=== PATIENT | male | born 1950 | race Caucasian/White ===

== ENCOUNTER 2023-12-28 09:49 | Outpatient (RCR) | payer MEDICARE, OTHER, SELFPAY ==
[2023-12-28 10:11] VITALS: BP 131/63; PULSE 49; RESP 16; TEMP 36.1; BMI 30.2
--- NOTE | 2023-12-28 10:15 | HP.PCM_ITS ---
History of Present Illness Date of Service: 12/28/23 Chief Complaint: Nonhealing ulceration plantar left foot secondary to Charcot arthropathy History of Wound: Patient is a 73-year-old male who first presented to office in January 2023 with complaint of deformity of the left foot. States in February 2022 that he was out playing golf and exited the golf cart feeling a pop in the left foot. He did remove shoe to examine however did not see any visible deformity and the site was not painful and thus he continued to play through the injury. 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 Reports deformity slowly progressed over next year. Upon radiographic imaging it was determined that he had Lisfranc injury which did result in continued deformity of the foot leading to Charcot joint arthropathy. 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. During the off season he does go to [facility], 45 minutes north of [place]. He does also follow with a bender machine operator to in [place] during this time. While in [place] he was fitted with a [place] walker and states that he does not wear this however has developed an ulceration to the plantar aspect of the left foot which he states first appeared in end of October 2023 as he returned to [place]. He did follow with me in office in November and underwent 5 weeks of local wound care treatment with applications of Nadira and continued offloading in [facility] however ulceration did not change in size and thus discussed referral to the wound care center for applications of advanced wound care product and applications of TCC. Patient denies nausea, vomiting, fever, chills. Patient denies pain secondary to peripheral polyneuro leanna. No further complaints. [facility] Home Medications ?Medication ?Instructions ?Recorded ?Last Taken ?Type aspirin 81 mg tablet,delayed 81 mg PO DAILY 12/28/23 Unknown History release (Adult Aspirin Regimen) atenolol 25 mg tablet 25 mg PO DAILY 12/28/23 Unknown History atorvastatin 40 mg tablet 40 mg PO DAILY 12/28/23 Unknown History cholecalciferol (vitamin D3) 50 10,000 unit PO DAILY 12/28/23 Unknown History mcg (2,000 unit) capsule (Vitamin D3) fexofenadine 180 mg tablet 180 mg PO DAILY 12/28/23 Unknown History (Shannon Allergy) gabapentin 300 mg capsule 300 mg PO BID 12/28/23 Unknown History insulin aspart U-100 100 unit/mL 150 unit subcut DAILY 12/28/23 Unknown History subcutaneous solution (Novolog U-100 Insulin aspart) meloxicam 15 mg tablet 15 mg PO DAILY 12/28/23 Unknown History omega-3 fatty acids 2,000 mg PO TID 12/28/23 Unknown History saw palmetto 450 mg capsule 450 mg PO BID 12/28/23 Unknown History telmisartan 80 1 tab PO DAILY 12/28/23 Unknown History mg-hydrochlorothiazide 25 mg tablet Allergy/AdvReac Type Severity Reaction Status Date / Time Penicillins (PCN) Allergy Intermediate Rash Verified 12/28/23 10:35 ROS Constitutional Constitutional: Denies anorexia, change in weight, chills, fatigue or fever(s) Eyes Eyes: Denies blurry vision, change in vision or double vision ENT HEENT: Denies dysphagia, nasal congestion, nasal discharge or sore throat Cardiovascular Cardiovascular: Denies chest pain, claudication or palpitations Respiratory/Chest Respiratory/Chest: Denies cough or shortness of breath at rest Gastrointestinal Gastrointestinal: Denies abdominal pain, constipation, diarrhea, nausea or vomiting Genitourinary Genitourinary: Denies dysuria, hematuria or urinary urgency Musculoskeletal Musculoskeletal: Denies joint pain, joint stiffness or joint swelling Integumentary Integumentary: Denies jaundice, lesions, pruritus or rash Neurologic Neurologic: Denies dizziness, numbness or seizures Psychiatric Psychiatric: Denies anxiety or depression Endocrine Endocrinology: Denies cold intolerance or heat intolerance Hematologic/Lymphatic Hematologic/Lymphatic: Denies easy bleeding or easy bruising Physical Exam Const alert, oriented x3 and no apparent distress General Appearance: cooperative and comfortable HEENT normocephalic Eyes General Eye: normal appearance of both eyes Neck General: normal visual inspection Lymph Lymphatic: no lymphadenopathy noted and no lymphedema noted Resp normal respiratory effort Cardio regular rate and regular rhythm Extremity normal capillary refill, no calf tenderness and no pedal edema Extremity Narrative: Vascular: DP and PT pulses palpable to the left lower extremity. CFT is less than 4 seconds to the digits. Hair growth is diminished to the digits of the foot. Normal temperature gradient. Neurologic: Absent protective sensation secondary to diabetic peripheral polyneuropathy. Gross sensation is intact. Musculoskeletal: Charcot foot arthropathy with apex of deformity of the Lisfranc joint with corresponding rocker-bottom foot deformity of the left foot. Derm: Rocker-bottom foot deformity noted with plantar ulceration at the central midfoot/cuboid region. Ulceration demonstrates healthy granular base with macerated tissue periwound with serosanguineous drainage. No palpable fluctuance/bogginess noted. No visible abscess formation. No erythema noted. No purulent drainage. No malodor noted. Skin no rashes or lesions noted, skin turgor normal and no jaundice Neuro moves all extremities Debridement Note Debridement Note Wound debrided: Left plantar foot Laterality: Left Wound Grade/Stage: Bass stage I Type of Debridement: Excisional debridement Anesthesia Used: 5% Lidocaine Gel Depth: Down to and including healthy tissue and in the subcutaneous layer Percentage of wound debrided: 100 Instrument Used: - (313 blade) Tissue Removed: Fibrous, devitalized subcutaneous, biofilm, slough Severity: Fat Layer Exposed Amount of bleeding with debridement: Mild Bleeding Controlled with: Compression and gauze Patient tolerated procedure: Patient tolerated procedure well Assessment/Plan Assessment/Plan (1) Neuropathic ulcer of left foot with fat layer exposed: CODE(S): L97.522 - Non-pressure chronic ulcer of other part of left foot with fat layer exposed (2) Charcot joint of left foot: CODE(S): M14.672 - Charcot's joint, left ankle and foot (3) Diabetes mellitus with diabetic polyneuropathy: CODE(S): E11.42 - Type 2 diabetes mellitus with diabetic polyneuropathy (4) Type 2 diabetes mellitus with foot ulcer: CODE(S): E11.621 - Type 2 diabetes mellitus with foot ulcer; L97.509 - Non-pressure chronic ulcer of other part of unspecified foot with unspecified severity PLAN: Plan Patient seen and evaluated Radiographs obtained in office 11/13/2023 demonstrates progression of deformity with rocker-bottom foot deformity. 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 While in office patient did complete 5 weeks of local wound care with applications of Nadira and continued offloading in his [place] boot, however ulceration failed to demonstrate progression and thus was referred to wound care center for continued care. Patient is understanding of his Charcot arthropathy deformity and that there is no cure. He is understanding that continued offloading is needed for lifelong progressive deformity. He is understanding of the risks of ulceration, infection, and possible amputation of the lower extremity. He has also completed oral course of doxycycline 100 mg twice daily (stop date 12/28/2023). Predebridement: 0.9 cm x 1.4 cm x 0.1 cm Ulceration to the plantar aspect of the left midfoot secondary to Charcot joint arthropathy with rocker-bottom foot deformity was debrided as noted in the clinical panel above. Postdebridement ulceration measures 1.0 cm x 1.5 cm x 0.1 cm. Collagen powder and PHMB applied to wound base. Site was dressed well and padded with dry sterile dressing. TCC (71911) was applied to the left lower extremity. I recommend total contact cast application to the left lower extremity. The is amendable to have a left lower extremity total contact cast applied and verbal consent was obtained. This was applied according to standard protocol in a rectus position that was also well padded according to standard protocol. He tolerated this well. He was advised to keep this clean, dry, and intact until follow-up next week. Discussed only ambulating in the improved offloading boot and not in the cast alone. He is understanding of this. Discussed applying for advanced wound care product, EpiFix. Pending approval will apply at next visit. Discussed continue proper diabetic diet for tight glycemic control to aid in wound healing. Patient does report his blood sugars tend to run around 160mg/dL and his previous A1c was 8.3% in January 2023, states most recent A1c is now under 8% but does not know number. We have discussed striving to lower A1c to 6.5%. Recommend updating A1c. Discussed protein intake to aid in wound healing. Umberto supplementation was also recommended. The following work up and care recommendations were made: Dressing: Collagen powder and PHMB dressing to ulcerative base. Total contact cast application to the left lower extremity for continued offloading. Wash: Do not get wet. Apply cast bag when showering to keep total contact cast clean and dry. Tissue growth optimization: Collagen powder PHMB dressing Offload: Total contact cast left lower extremity Vascular: DP and PT pulses palpable Edema: Mild pedal edema secondary to Charcot arthropathy Infection: No signs of infection Pain: No pain secondary to DM type II with peripheral polyneuropathy Host factors: Charcot arthropathy with rocker-bottom foot deformity left lower extremity: DM type II with peripheral polyneuropathy I answered all the patient's questions. To return to the wound healing center in 1 week or call sooner if the patient has any questions or concerns.
--- NOTE | 2024-01-03 11:02 | WC ---
PHOTO LEFT PLANTAR(I) 12/26/23
== END 2024-01-03 23:59 | disposition home or self-care (01) ==
LOC: WC 09:49
PROVIDERS: Referring Provider Student in an Organized Health Care Education/Training Program; Visit Provider Student in an Organized Health Care Education/Training Program
DX: E11.621 Type 2 diabetes mellitus with foot ulcer (principal); L97.522 Non-pressure chronic ulcer of other part of left foot with fat layer exposed; Z79.4 Long term (current) use of insulin; E11.610 Type 2 diabetes mellitus with diabetic neuropathic arthropathy; E11.42 Type 2 diabetes mellitus with diabetic polyneuropathy; Z79.82 Long term (current) use of aspirin; Z79.1 Long term (current) use of non-steroidal anti-inflammatories (NSAID)
CPT/HCPCS: 11042; 29445; 99204; G0463

== ENCOUNTER 2024-02-01 09:30 | Outpatient (RCR) | payer MEDICARE, OTHER, SELFPAY ==
[2024-01-04 00:52] VITALS: BP 131/63; PULSE 49; RESP 16; TEMP 36.1; BMI 30.2
[2024-01-04 10:39] VITALS: BP 137/66; PULSE 59; RESP 18; TEMP 35.8; BMI 30.2
--- NOTE | 2024-01-04 14:01 | PN.PCM_ITS ---
History of Present Illness Date of Service: 01/04/24 Chief Complaint: Nonhealing ulceration plantar left foot secondary to Charcot arthropathy History of Wound: Patient is a 73-year-old male who first presented to office in January 2023 with complaint of deformity of the left foot. States in February 2022 that he was exited the golf cart feeling a pop in the left foot. He did remove shoe to examine however did not see any visible deformity and the site was not painful and thus he continued to play through the injury. 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 Reports deformity slowly progressed over next year. Upon radiographic imaging it was determined that he had Lisfranc injury which did result in continued deformity of the foot leading to Charcot joint arthropathy. 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 During the off season he does go to [facility], 45 minutes north of [place]. He does also follow with a learning support specialist to in [place] during this time. While in [place] he was fitted with a Tribe walker and states that he does not wear this however has developed an ulceration to the plantar aspect of the left foot which he states first appeared in end of October 2023 as he returned to [place]. He did follow with me in office in November and underwent 5 weeks of local wound care treatment with applications of Nadira and continued offloading in [facility] however ulceration did not change in size and thus discussed referral to the wound care center for applications of advanced wound care product and applications of TCC. Patient denies nausea, vomiting, fever, chills. Patient denies pain secondary to peripheral polyneuropathy. No further complaints. Objective Data Objective Data Vital Signs: Vital Signs Temp Pulse Resp BP 96.5 F L 59 L 18 137/66 H 01/04/24 10:39 01/04/24 10:39 01/04/24 10:39 01/04/24 10:39 Weight: 106.594 kg Body Mass Index (BMI) 30.2 Physical Exam Const alert, oriented x3 and no apparent distress General Appearance: cooperative HEENT normocephalic Eyes General Eye: normal appearance of both eyes Neck General: normal visual inspection Lymph Lymphatic: no lymphadenopathy noted and no lymphedema noted Resp normal respiratory effort Cardio regular rate and regular rhythm Extremity normal capillary refill, no joint enlargement, no calf tenderness and no pedal edema Extremity Narrative: Vascular: DP and PT pulses palpable to the left lower extremity. CFT is less than 4 seconds to the digits. Hair growth is diminished to the digits of the foot. Normal temperature gradient. Neurologic: Absent protective sensation secondary to diabetic peripheral polyneuropathy. Gross sensation is intact. Musculoskeletal: Charcot foot arthropathy with apex of deformity of the Lisfranc joint with corresponding rocker-bottom foot deformity of the left foot. Derm: Rocker-bottom foot deformity noted with plantar ulceration at the central midfoot/cuboid region. Ulceration demonstrates healthy granular base with some macerated tissue periwound with serosanguineous drainage. No palpable fluctuance/bogginess noted. No visible abscess formation. No erythema noted. No purulent drainage. No malodor noted. Debridement Note Debridement Note Wound debrided: Left plantar foot Laterality: Left Wound Grade/Stage: Bass stage I Type of Debridement: Excisional debridement Anesthesia Used: 5% Lidocaine Gel Depth: Down to and including healthy tissue and in the subcutaneous layer Percentage of wound debrided: 100 Instrument Used: 5mm curette and #15 blade Tissue Removed: Fibrous, devitalized subcutaneous, biofilm, slough Severity: Fat Layer Exposed Amount of bleeding with debridement: Mild Bleeding Controlled with: Compression and gauze Patient tolerated procedure: Patient tolerated procedure well Post-Debridement Measurements and Additional Note: Post-Debridement Measurements/Treatment - Nurse 1 - General Ulcer Assessment Start: 01/04/24 10:39 Freq: Status: Active Protocol: .LOWEXT Activity Type Activity Date Activity User E-sign Co-sign Detail Recorded Client Recorded Date Recorded By Document 01/04/24 10:39 RB wound 01/04/24 10:41 RB 01/04/24 10:39 - Today's Visit Information Type of service Follow-up Visit (Physician/ZONE SUPER[employer]OR [employer] ) Arrival Mode Ambulatory Transfer Assistance None Patient Identification Verified (Name & Yes ) Patient Requires Transmission-Based No Precautions Height and Weight Body Mass Index (BMI) 30.2 BMI Classification Obese Vital Signs Temperature (97.8 F-99.1 F) 96.5 F L Temperature Source Temporal Pulse Rate (60-100) 59 L Pulse Location Monitor Respiratory Rate (12-18) 18 Respiratory rate source Observation Blood Pressure (90/60-120/80) 137/66 H Blood Pressure Mean (mm Hg) 89 Source Monitor Position Semi-Fowlers Blood Pressure Location Left Arm History Since Last Visit- (Skip if this is Patient's initial visit) Have you changed medications since your No last visit? Any new allergies or adverse reactions No Had a fall/change in ADL's that may No increase risk of falls Signs or symptoms of abuse and/or No neglect since last visit Have you been in the hospital since your No last visit? Has dressing in place as prescribed Yes Has compression in place as prescribed No Has offloadiing in place as prescribed Yes Experienced any changes in pain level or No management Pain Scale: 0-10 Numeric Is Patient Pain Free? Yes - Nurse 1 - General Ulcer Measurement Start: 01/04/24 10:39 Freq: Status: Active Protocol: Activity Type Activity Date Activity User E-sign Co-sign Detail Recorded Client Recorded Date Recorded By Document 01/04/24 10:39 RB wound 01/04/24 10:41 RB 01/04/24 10:39 Wound Center Nurse 1 1. left plantar foot -Combined with other wound No -Current Size (cm) - Length 0.7 -Current Size (cm) - Width 0.7 -Current Size (cm) - Depth 0.1 -Total Square Cm 0.49 -Tunneling No -Undermining/Tunneling No -Circular Undermining No -Exudate Amt Medium -Exudate Type Serosanguineous -Wound Margin Distinct, Outline Attached -Granulation Amt Medium (34-66%) -Granulation Quality [place] -Slough/Fibrin Yes -Necrosis Amt Medium (34-66%) -Necrotic Tissue Type Adherent Slough -Structure Exposed N/A -Texture (Tere-wound Skin Appearance) Assessed,Callus -Moisture (Tere-wound Skin Appearance) Assessed -Color (Tere-wound Skin Appearance) Assessed -Temperature (Tere-wound Skin No Abnormality Appearance) (Pt Warm) -Tenderness on Palpation (Tere-wound No Skin Appearance) -Ulcer Cleansing Wound Cleanser -Foul Odor after Cleansing No -Anesthetic Used 5% Lidocaine Gel LUIZA - Nurse 2 - General Ulcer CM Notes Start: 01/04/24 10:39 Freq: Status: Active Protocol: Activity Type Activity Date Activity User E-sign Co-sign Detail Recorded Client Recorded Date Recorded By Document 01/04/24 10:48 BMF [id number] 01/04/24 10:57 BMF 01/04/24 10:48 Wound Center Nurse 2 -Time 10:48 -Correct Patient Yes -Correct Side, Site, Position Yes -Correct Procedure Yes -Procedure Performed Yes -Type of Procedure Debridement -Clinical Debridement Subcutaneous -Tissue Removed Subcutaneous -Post Debridement (cm) - Length 1 -Post Debridement (cm) - Width 0.8 -Post Debridement (cm) - Depth 0.1 -Total Square (Post) (cm) 0.8 -Area of Debridement (cm) - Length 1 -Area of Debridement (cm) - Width 0.8 -Total Square (Area) (cm) 0.8 -Tunneling No -Undermining/Tunneling No -Circular Undermining No -Wound/Ulcer Outcome Not Healed -Ulcer Cleansing Rinsed/ Irrigated with Saline -Foul Odor after Cleansing No -Bioengineered Tissue Yes -Type of Bioengineered Tissue Epifix 18mm Disc -Expiration Date 07/06/28 -Product Lot Number [id number] -Percent Used 100 -Lot number of Saline Used [id number] -Bleeding Controlled with Pressure -Treatment Response Procedure Tolerated Well -Offloading Yes -Type of Offloading Total Contact Cast (TCC) - Left ($) -Debridement - Subq, 1st 20sq cm No -Apply Skin Sub - 1st 25 sq cm - Feet 1 -Epifix 18mm Disc 3 Pain Scale: 0-10 Numeric Is Patient Pain Free? Yes - Nurse 3 - General Ulcer D/C NN Start: 01/04/24 10:39 Freq: Status: Active Protocol: Activity Type Activity Date Activity User E-sign Co-sign Detail Recorded Client Recorded Date Recorded By Document 01/04/24 11:44 KW [facility] 01/04/24 11:44 01/04/24 11:44 Wound Care Center Nurse 3 1. left plantar foot -Primary Dressing Applied AMD Dressing 4x4 -AMD Dressing 4x4 1 Pain Scale: 0-10 Numeric Is Patient Pain Free? Yes - Visit Discharge Discharge Condition Stable Ambulatory Status Ambulatory Transportation Private Auto Medication Reconcilliation completed & No provided to patient/care provider Clinical Summary of Care Provided Yes Notes: TCC CAST APPLIED Assessment/Plan Assessment/Plan (1) Neuropathic ulcer of left foot with fat layer exposed: CODE(S): L97.522 - Non-pressure chronic ulcer of other part of left foot with fat layer exposed (2) Charcot joint of left foot: CODE(S): M14.672 - Charcot's joint, left ankle and foot (3) Type I diabetes mellitus with polyneuropathy: CODE(S): E10.42 - Type 1 diabetes mellitus with diabetic polyneuropathy (4) Diabetes mellitus with foot ulcer: CODE(S): E11.621 - Type 2 diabetes mellitus with foot ulcer; L97.509 - Non-pressure chronic ulcer of other part of unspecified foot with unspecified severity PLAN: Plan Patient seen and evaluated Radiographs obtained in office 11/13/2023 demonstrates progression of deformity with rocker-bottom foot deformity. 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 While in office patient did complete 5 weeks of local wound care with applications of Nadira and continued offloading in his Tribe boot, however ulceration failed to demonstrate progression and thus was referred to wound care center for continued care. Patient is understanding of his Charcot arthropathy deformity and that there is no cure. He is understanding that continued offloading is needed for lifelong progressive deformity. He is understanding of the risks of ulceration, infection, and possible amputation of the lower extremity. He has also completed oral course of doxycycline 100 mg twice daily (stop date 12/28/2023). Predebridement: 0.9 cm x 0.7 cm x 0.1 cm Ulceration to the plantar aspect of the left midfoot secondary to Charcot joint arthropathy with rocker-bottom foot deformity was debrided as noted in the clinical panel above. Postdebridement ulceration measures 1.0 cm x 0.8 cm x 0.1 cm. EpiFix graft #1 applied to ulcerative bed and dressed with Adaptic touch and anchored with Steri-Strips. Site was dressed well and padded with dry sterile dressing. TCC (35060) was applied to the left lower extremity. Ulceration demonstrates reduction in size versus previous visit and overall improvement with application of the total contact cast. Will continue applications. I recommend total contact cast application to the left lower extremity 01/04/24. The is amendable to have a left lower extremity total contact cast applied and verbal consent was obtained. This was applied according to standard protocol in a rectus position that was also well padded according to standard protocol. He tolerated this well. He was advised to keep this clean, dry, and intact until follow-up next week. Discussed only ambulating in the improved offloading boot and not in the cast alone. He is understanding of this. He has been approved for advanced wound care product, EpiFix. Will continue applying Discussed continue proper diabetic diet for tight glycemic control to aid in wound healing. Patient does report his blood sugars tend to run around 160mg/dL and his previous A1c was 8.3% in January 2023, states most recent A1c is now under 8% but does not know number. We have discussed striving to lower A1c to 6.5%. Recommend updating A1c. Discussed protein intake to aid in wound healing. Umberto supplementation was also recommended. The following work up and care recommendations were made: Dressing: EpiFix, Adaptic touch, Steri-Strips, dry sterile dressing. Total cont act cast application to the left lower extremity for continued offloading. Wash: Do not get wet. Apply cast bag when showering to keep total contact cast clean and dry. Tissue growth optimization: EpiFix Offload: Total contact cast left lower extremity Vascular: DP and PT pulses palpable Edema: Mild pedal edema secondary to Charcot arthropathy Infection: No signs of infection Pain: No pain secondary to DM type II with peripheral polyneuropathy Host factors: Charcot arthropathy with rocker-bottom foot deformity left lower extremity: DM type II with peripheral polyneuropathy I answered all the patient's questions. To return to the wound healing center in 1 week or call sooner if the patient has any questions or concerns.
[2024-01-11 09:31] VITALS: BP 114/59; PULSE 53; RESP 16; TEMP 35.5; BMI 30.2
--- NOTE | 2024-01-11 13:34 | PCM.WC.PN ---
History of Present Illness Date of Service: 01/11/24 Chief Complaint: Nonhealing ulceration plantar left foot secondary to Charcot arthropathy History of Wound: Patient is a 73-year-old male who first presented to office in January 2023 with complaint of deformity of the left foot. States in February 2022 that he was exited the golf cart feeling a pop in the left foot. He did remove shoe to examine however did not see any visible deformity and the site was not painful and thus he continued to play through the injury. 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 Reports deformity slowly progressed over next year. Upon radiographic imaging it was determined that he had Lisfranc injury which did result in continued deformity of the foot leading to Charcot joint arthropathy. 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 During the off season he does go to [facility], 45 minutes north of [place]. He does also follow with a media senior recruiter to in [place] during this time. While in [place] he was fitted with a [employer] walker and states that he does not wear this however has developed an ulceration to the plantar aspect of the left foot which he states first appeared in end of October 2023 as he returned to [place]. He did follow with me in office in November and underwent 5 weeks of local wound care treatment with applications of Nadira and continued offloading in [facility] however ulceration did not change in size and thus discussed referral to the wound care center for applications of advanced wound care product and applications of TCC. Patient denies nausea, vomiting, fever, chills. Patient denies pain secondary to peripheral polyneuropathy. No further complaints. Subjective Subjective 73-year-old male continues follow-up to the wound care center for left foot plantar ulceration secondary to Charcot foot deformity. Continues to ambulate in total contact cast and does well with this. Denies constitutional symptoms today. Denies further complaints today. Objective Data Objective Data Vital Signs: Vital Signs Temp Pulse Resp BP 96 F L 53 L 16 114/59 L 01/11/24 09:31 01/11/24 09:31 01/11/24 09:31 01/11/24 09:31 Weight: 106.594 kg Body Mass Index (BMI) 30.2 Physical Exam Const alert, oriented x3 and no apparent distress General Appearance: cooperative HEENT normocephalic Eyes General Eye: normal appearance of both eyes Neck General: normal visual inspection Lymph Lymphatic: no lymphadenopathy noted and no lymphedema noted Resp normal respiratory effort Cardio regular rate and regular rhythm Extremity normal capillary refill, no joint enlargement, no calf tenderness and no pedal edema Extremity Narrative: Vascular: DP and PT pulses palpable to the left lower extremity. CFT is less than 4 seconds to the digits. Hair growth is diminished to the digits of the foot. Normal temperature gradient. Neurologic: Absent protective sensation secondary to diabetic peripheral polyneuropathy. Gross sensation is intact. Musculoskeletal: Charcot foot arthropathy with apex of deformity of the Lisfranc joint with corresponding rocker-bottom foot deformity of the left foot. Derm: Rocker-bottom foot deformity noted with plantar ulceration at the central midfoot/cuboid region. Ulceration demonstrates healthy granular base with some macerated tissue periwound with serosanguineous drainage. No palpable fluctuance/bogginess noted. No visible abscess formation. No erythema noted. No purulent drainage. No malodor noted. Debridement Note Debridement Note Wound debrided: Left plantar midfoot Laterality: Left Wound Grade/Stage: Bass stage I Type of Debridement: Excisional debridement Anesthesia Used: 5% Lidocaine Gel Depth: Down to and including healthy tissue and in the subcutaneous layer Percentage of wound debrided: 100 Instrument Used: - (313 blade) Tissue Removed: Fibrous, devitalized subcutaneous, biofilm, slough Severity: Fat Layer Exposed Amount of bleeding with debridement: Mild Bleeding Controlled with: Compression and gauze Patient tolerated procedure: Patient tolerated procedure well Post-Debridement Measurements and Additional Note: Post-Debridement Measurements/Treatment - Nurse 1 - General Ulcer Assessment Start: 01/04/24 10:39 Freq: Status: Active Protocol: LAURA Activity Type Activity Date Activity User E-sign Co-sign Detail Recorded Client Recorded Date Recorded By Document 01/04/24 10:39 RB wound 01/04/24 10:41 RB Document 01/11/24 09:31 DL [email or web address] 01/11/24 09:41 DL 01/04/24 01/11/24 10:39 09:31 - Today's Visit Information Type of service Follow-up Visit Follow-up Visit (Physician/COMMERCIAL ATTACHE (Physician/COMMERCIAL ATTACHE ) ) Arrival Mode Ambulatory Ambulatory Transfer Assistance None None Patient Identification Verified (Name & Yes Yes ) Patient Requires Transmission-Based No No Precautions Height and Weight Body Mass Index (BMI) 30.2 30.2 BMI Classification Obese Obese Vital Signs Temperature (97.8 F-99.1 F) 96.5 F L 96 F L Temperature Source Temporal Temporal Pulse Rate (60-100) 59 L 53 L Pulse Location Monitor Monitor Respiratory Rate (12-18) 18 16 Respiratory rate source Observation Observation Blood Pressure (90/60-120/80) 137/66 H 114/59 L Blood Pressure Mean (mm Hg) 89 77 Source Monitor Monitor Position Semi-Fowlers Blood Pressure Location Left Arm History Since Last Visit- (Skip if this is Patient's initial visit) Have you changed medications since your No No last visit? Any new allergies or adverse reactions No No Had a fall/change in ADL's that may No No increase risk of falls Signs or symptoms of abuse and/or No No neglect since last visit Have you been in the hospital since your No No last visit? Has dressing in place as prescribed Yes Yes Has compression in place as prescribed No N/A Has offloadiing in place as prescribed Yes Yes Experienced any changes in pain level or No No management Left Footwear Total Contact Cast Pain Scale: 0-10 Numeric Is Patient Pain Free? Yes Yes WC - Nurse 1 - General Ulcer Measurement Start: 01/04/24 10:39 Freq: Status: Active Protocol: Activity Type Activity Date Activity User E-sign Co-sign Detail Recorded Client Recorded Date Recorded By Document 01/04/24 10:39 RB wound 01/04/24 10:41 RB Document 01/11/24 09:31 DL [email or web address] 01/11/24 09:41 DL 01/04/24 01/11/24 10:39 09:31 Wound Center Nurse 1 1. left plantar foot -Combined with other wound No -Current Size (cm) - Length 0.7 0.1 -Current Size (cm) - Width 0.7 0.1 -Current Size (cm) - Depth 0.1 0.1 -Total Square Cm 0.49 0.01 -Photo Taken Yes -Tunneling No -Undermining/Tunneling No -Circular Undermining No -Exudate Amt Medium Small -Exudate Type Serosanguineous Serosanguineous -Wound Margin Distinct, Distinct, Outline Outline Attached Attached -Granulation Amt Medium (34-66%) Large (67-100%) -Granulation Quality [place] -Slough/Fibrin Yes -Necrosis Amt Medium (34-66%) Small (1-33%) -Necrotic Tissue Type Adherent Slough Adherent Slough -Structure Exposed N/A N/A -Texture (Tere-wound Skin Appearance) Assessed,Callus Scarring -Moisture (Tere-wound Skin Appearance) Assessed No Abnormality -Color (Tere-wound Skin Appearance) Assessed No Abnormality -Temperature (Tere-wound Skin No Abnormality No Abnormality Appearance) (Pt Warm) (Pt Warm) -Tenderness on Palpation (Tere-wound No Skin Appearance) -Ulcer Cleansing Wound Cleanser Soap and Water -Foul Odor after Cleansing No No -Anesthetic Used 5% Lidocaine 5% Lidocaine Gel Gel WC - Nurse 2 - General Ulcer CM Notes Start: 01/04/24 10:39 Freq: Status: Active Protocol: Activity Type Activity Date Activity User E-sign Co-sign Detail Recorded Client Recorded Date Recorded By Document 01/04/24 10:48 [facility] [email or web address] 01/04/24 10:57 [facility] Document 01/11/24 10:10 JF 000 01/11/24 10:13 JF 01/04/24 01/11/24 10:48 10:10 Wound Center Nurse 2 1. left plantar foot -Time 10:48 10:10 -Correct Patient Yes Yes -Correct Side, Site, Position Yes Yes -Correct Procedure Yes Yes -Procedure Performed Yes Yes -Type of Procedure Debridement Debridement -Clinical Debridement Subcutaneous Subcutaneous -Tissue Removed Subcutaneous Subcutaneous -Post Debridement (cm) - Length 1 0.8 -Post Debridement (cm) - Width 0.8 0.6 -Post Debridement (cm) - Depth 0.1 0.1 -Total Square (Post) (cm) 0.8 0.48 -Area of Debridement (cm) - Length 1 0.8 -Area of Debridement (cm) - Width 0.8 0.6 -Total Square (Area) (cm) 0.8 0.48 -Tunneling No No -Undermining/Tunneling No No -Circular Undermining No No -Wound/Ulcer Outcome Not Healed Not Healed -Ulcer Cleansing Rinsed/ Rinsed/ Irrigated with Irrigated with Saline Saline -Foul Odor after Cleansing No No -Bioengineered Tissue Yes Yes -Type of Bioengineered Tissue Epifix 18mm Epifix 18mm Disc Disc -Expiration Date 07/06/28 07/06/28 -Product Lot Number [id number] -Percent Used 100 100 -Lot number of Saline Used [id number] -Bleeding Controlled with Pressure Pressure -Treatment Response Procedure Procedure Tolerated Well Tolerated Well -Offloading Yes Yes -Type of Offloading Total Contact Total Contact Cast (TCC) - Cast (TCC) - Left ($) Left ($) -Debridement - Subq, 1st 20sq cm No No -Apply Skin Sub - 1st 25 sq cm - Feet 1 1 -Epifix 18mm Disc 3 3 Pain Scale: 0-10 Numeric Is Patient Pain Free? Yes Yes - Nurse 3 - General Ulcer D/C NN Start: 01/04/24 10:39 Freq: Status: Active Protocol: Activity Type Activity Date Activity User E-sign Co-sign Detail Recorded Client Recorded Date Recorded By Document 01/04/24 11:44 [facility] 01/04/24 11:44 Document 01/11/24 11:54 JF 000 01/11/24 11:55 01/04/24 01/11/24 11:44 11:54 Wound Care Center Nurse 3 1. left plantar foot -Ulcer Cleansing Rinsed/ Irrigated with Saline -Foul Odor after Cleansing No -Primary Dressing Applied AMD Dressing Mepilex Border 4x4 -AMD Dressing 4x4 1 -Mepilex Border 1 Pain Scale: 0-10 Numeric Is Patient Pain Free? Yes Yes - Visit Discharge Discharge Condition Stable Stable Ambulatory Status Ambulatory Ambulatory Transportation Private Auto Private Auto Medication Reconcilliation completed & No Yes provided to patient/care provider Clinical Summary of Care Provided Yes Yes Notes: TCC CAST Tcc size 3 APPLIED applied today. Assessment/Plan Assessment/Plan (1) Neuropathic ulcer of left foot with fat layer exposed: CODE(S): L97.522 - Non-pressure chronic ulcer of other part of left foot with fat layer exposed (2) Charcot joint of left foot: CODE(S): M14.672 - Charcot's joint, left ankle and foot (3) Type I diabetes mellitus with polyneuropathy: CODE(S): E10.42 - Type 1 diabetes mellitus with diabetic polyneuropathy (4) Diabetes mellitus with foot ulcer: CODE(S): E11.621 - Type 2 diabetes mellitus with foot ulcer; L97.509 - Non-pressure chronic ulcer of other part of unspecified foot with unspecified severity PLAN: Plan Patient seen and evaluated Radiographs obtained in office 11/13/2023 demonstrates progression of deformity with rocker-bottom foot deformity. 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 While in office patient did complete 5 weeks of local wound care with applications of Nadira and continued offloading in his [employer] boot, however ulceration failed to demonstrate progression and thus was referred to wound care center for continued care. Patient is understanding of his Charcot arthropathy deformity and that there is no cure. He is understanding that continued offloading is needed for lifelong progressive deformity. He is understanding of the risks of ulceration, infection, and possible amputation of the lower extremity. He has also completed oral course of doxycycline 100 mg twice daily (stop date 12/28/2023). Predebridement: 0.7 cm x 0.5 cm x 0.1 cm Ulceration to the plantar aspect of the left midfoot secondary to Charcot joint arthropathy with rocker-bottom foot deformity was debrided as noted in the clinical panel above. Postdebridement ulceration measures 0.8 cm x 0.6 cm x 0.1 cm. EpiFix graft #2 applied to ulcerative bed and dressed with Adaptic touch and anchored with Steri-Strips. Site was dressed well and padded with dry sterile dressing. TCC (92325) was applied to the left lower extremity. Ulceration demonstrates reduction in size versus previous visit and overall improvement with application of the total contact cast. Will continue applications. I recommend total contact cast application to the left lower extremity 01/11/24. The is amendable to have a left lower extremity total contact cast applied and verbal consent was obtained. This was applied according to standard protocol in a rectus position that was also well padded according to standard protocol. He tolerated this well. He was advised to keep this clean, dry, and intact until follow-up next week. Discussed only ambulating in the improved offloading boot and not in the cast alone. He is understanding of this. He has been approved for advanced wound care product, EpiFix. Will continue applying Discussed continue proper diabetic diet for tight glycemic control to aid in wound healing. Patient does report his blood sugars tend to run around 160mg/dL and his previous A1c was 8.3% in January 2023, states most recent A1c is now under 8% but does not know number. We have discussed striving to lower A1c to 6.5%. Recommend updating A1c. Discussed protein intake to aid in wound healing. Umberto supplementation was also recommended. The following work up and care recommendations were made: Dressing: EpiFix, Adaptic touch, Steri-Strips, dry sterile dressing. Total contact cast application to the left lower extremity for continued offloading. Wash: Do not get wet. Apply cast bag when showering to keep total contact cast clean and dry. Tissue growth optimization: EpiFix Offload: Total contact cast left lower extremity Vascular: DP and PT pulses palpable Edema: Mild pedal edema secondary to Charcot arthropathy Infection: No signs of infection Pain: No pain secondary to DM type II with peripheral polyneuropathy Host factors: Charcot arthropathy with rocker-bottom foot deformity left lower extremity: DM type II with peripheral polyneuropathy I answered all the patient's questions. To return to the wound healing center in 1 week or call sooner if the patient has any questions or concerns.
--- NOTE | 2024-01-17 16:08 | PN.PCM_ITS ---
History of Present Illness Date of Service: 01/17/24 Chief Complaint: Nonhealing ulceration plantar left foot secondary to Charcot arthropathy History of Wound: Patient is a 73-year-old male who first presented to office in January 2023 with complaint of deformity of the left foot. States in February 2022 that he was exited the golf cart feeling a pop in the left foot. He did remove shoe to examine however did not see any visible deformity and the site was not painful and thus he continued to play through the injury. 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 Reports deformity slowly progressed over next year. Upon radiographic imaging it was determined that he had Lisfranc injury which did result in continued deformity of the foot leading to Charcot joint arthropathy. 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 During the off season he does go to [facility], 45 minutes north of [place]. 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 While in [place] he was fitted with a Akiachak walker and states that he does not wear this however has developed an ulceration to the plantar aspect of the left foot which he states first appeared in end of October 2023 as he returned to [place]. He did follow with me in office in November and underwent 5 weeks of local wound care treatment with applications of Nadira and continued offloading in [facility] however ulceration did not change in size and thus discussed referral to the wound care center for applications of advanced wound care product and applications of TCC. Patient denies nausea, vomiting, fever, chills. Patient denies pain secondary to peripheral polyneuropathy. No further complaints. Subjective Subjective 73-year-old male continues follow-up to the wound care center for left foot plantar ulceration secondary to Charcot foot deformity. Continues to ambulate in total contact cast and does well with this. Denies constitutional symptoms today. Denies further complaints today. Objective Data Objective Data Vital Signs: Vital Signs Temp Pulse Resp BP 96 F L 53 L 16 114/59 L 01/11/24 09:31 01/11/24 09:31 01/11/24 09:31 01/11/24 09:31 Weight: 106.594 kg Body Mass Index (BMI) 30.2 Physical Exam Const alert, oriented x3 and no apparent distress General Appearance: cooperative HEENT normocephalic Eyes General Eye: normal appearance of both eyes Neck General: normal visual inspection Lymph Lymphatic: no lymphadenopathy noted and no lymphedema noted Resp normal respiratory effort Cardio regular rate and regular rhythm Extremity normal capillary refill, no joint enlargement, no calf tenderness and no pedal edema Extremity Narrative: Vascular: DP and PT pulses palpable to the left lower extremity. CFT is less than 4 seconds to the digits. Hair growth is diminished to the digits of the foot. Normal temperature gradient. Neurologic: Absent protective sensation secondary to diabetic peripheral polyneuropathy. Gross sensation is intact. Musculoskeletal: Charcot foot arthropathy with apex of deformity of the Lisfranc joint with corresponding rocker-bottom foot deformity of the left foot. Derm: Rocker-bottom foot deformity noted with plantar ulceration at the central midfoot/cuboid region. Ulceration demonstrates healthy granular base with some macerated tissue periwound with serosanguineous drainage. No palpable fluctuance/bogginess noted. No visible abscess formation. No erythema noted. No purulent drainage. No malodor noted. Debridement Note Debridement Note Wound debrided: Plantar left foot Laterality: Left Wound Grade/Stage: Bass stage I Type of Debridement: Excisional debridement Anesthesia Used: 5% Lidocaine Gel Depth: Down to and including healthy tissue and in the subcutaneous layer Percentage of wound debrided: 100 Instrument Used: #15 blade Tissue Removed: Fibrous, devitalized subcutaneous, biofilm, slough Severity: Fat Layer Exposed Amount of bleeding with debridement: Mild Bleeding Controlled with: Compression and gauze Patient tolerated procedure: Patient tolerated procedure well Post-Debridement Measurements and Additional Note: Post-Debridement Measurements/Treatment - Nurse 1 - General Ulcer Assessment Start: 01/04/24 10:39 Freq: Status: Active Protocol: LAURA Activity Type Activity Date Activity User E-sign Co-sign Detail Recorded Client Recorded Date Recorded By Document 01/04/24 10:39 RB wound 01/04/24 10:41 RB Document 01/11/24 09:31 DL [email or web address] 01/11/24 09:41 DL 01/04/24 01/11/24 10:39 09:31 - Today's Visit Information Type of service Follow-up Visit Follow-up Visit (Physician/ACID REMOVER (Physician/ACID REMOVER ) ) Arrival Mode Ambulatory Ambulatory Transfer Assistance None None Patient Identification Verified (Name & Yes Yes ) Patient Requires Transmission-Based No No Precautions Height and Weight Body Mass Index (BMI) 30.2 30.2 BMI Classification Obese Obese Vital Signs Temperature (97.8 F-99.1 F) 96.5 F L 96 F L Temperature Source Temporal Temporal Pulse Rate (60-100) 59 L 53 L Pulse Location Monitor Monitor Respiratory Rate (12-18) 18 16 Respiratory rate source Observation Observation Blood Pressure (90/60-120/80) 137/66 H 114/59 L Blood Pressure Mean (mm Hg) 89 77 Source Monitor Monitor Position Semi-Fowlers Blood Pressure Location Left Arm History Since Last Visit- (Skip if this is Patient's initial visit) Have you changed medications since your No No last visit? Any new allergies or adverse reactions No No Had a fall/change in ADL's that may No No increase risk of falls Signs or symptoms of abuse and/or No No neglect since last visit Have you been in the hospital since your No No last visit? Has dressing in place as prescribed Yes Yes Has compression in place as prescribed No N/A Has offloadiing in place as prescribed Yes Yes Experienced any changes in pain level or No No management Left Footwear Total Contact Cast Pain Scale: 0-10 Numeric Is Patient Pain Free? Yes Yes WC - Nurse 1 - General Ulcer Measurement Start: 01/04/24 10:39 Freq: Status: Active Protocol: Activity Type Activity Date Activity User E-sign Co-sign Detail Recorded Client Recorded Date Recorded By Document 01/04/24 10:39 RB wound 01/04/24 10:41 RB Document 01/11/24 09:31 DL [email or web address] 01/11/24 09:41 DL 01/04/24 01/11/24 10:39 09:31 Wound Center Nurse 1 1. left plantar foot -Combined with other wound No -Current Size (cm) - Length 0.7 0.1 -Current Size (cm) - Width 0.7 0.1 -Current Size (cm) - Depth 0.1 0.1 -Total Square Cm 0.49 0.01 -Photo Taken Yes -Tunneling No -Undermining/Tunneling No -Circular Undermining No -Exudate Amt Medium Small -Exudate Type Serosanguineous Serosanguineous -Wound Margin Distinct, Distinct, Outline Outline Attached Attached -Granulation Amt Medium (34-66%) Large (67-100%) -Granulation Quality Basehor Basehor -Slough/Fibrin Yes -Necrosis Amt Medium (34-66%) Small (1-33%) -Necrotic Tissue Type Adherent Slough Adherent Slough -Structure Exposed N/A N/A -Texture (Tere-wound Skin Appearance) Assessed,Callus Scarring -Moisture (Tere-wound Skin Appearance) Assessed No Abnormality -Color (Tere-wound Skin Appearance) Assessed No Abnormality -Temperature (Tere-wound Skin No Abnormality No Abnormality Appearance) (Pt Warm) (Pt Warm) -Tenderness on Palpation (Tere-wound No Skin Appearance) -Ulcer Cleansing Wound Cleanser Soap and Water -Foul Odor after Cleansing No No -Anesthetic Used 5% Lidocaine 5% Lidocaine Gel Gel WC - Nurse 2 - General Ulcer CM Notes Start: 01/04/24 10:39 Freq: Status: Active Protocol: Activity Type Activity Date Activity User E-sign Co-sign Detail Recorded Client Recorded Date Recorded By Document 01/04/24 10:48 [facility] [email or web address] 01/04/24 10:57 [facility] Document 01/11/24 10:10 000 01/11/24 10:13 01/04/24 01/11/24 10:48 10:10 Wound Center Nurse 2 1. left plantar foot -Time 10:48 10:10 -Correct Patient Yes Yes -Correct Side, Site, Position Yes Yes -Correct Procedure Yes Yes -Procedure Performed Yes Yes -Type of Procedure Debridement Debridement -Clinical Debridement Subcutaneous Subcutaneous -Tissue Removed Subcutaneous Subcutaneous -Post Debridement (cm) - Length 1 0.8 -Post Debridement (cm) - Width 0.8 0.6 -Post Debridement (cm) - Depth 0.1 0.1 -Total Square (Post) (cm) 0.8 0.48 -Area of Debridement (cm) - Length 1 0.8 -Area of Debridement (cm) - Width 0.8 0.6 -Total Square (Area) (cm) 0.8 0.48 -Tunneling No No -Undermining/Tunneling No No -Circular Undermining No No -Wound/Ulcer Outcome Not Healed Not Healed -Ulcer Cleansing Rinsed/ Rinsed/ Irrigated with Irrigated with Saline Saline -Foul Odor after Cleansing No No -Bioengineered Tissue Yes Yes -Type of Bioengineered Tissue Epifix 18mm Epifix 18mm Disc Disc -Expiration Date 07/06/28 07/06/28 -Product Lot Number [id number] -Percent Used 100 100 -Lot number of Saline Used [id number] -Bleeding Controlled with Pressure Pressure -Treatment Response Procedure Procedure Tolerated Well Tolerated Well -Offloading Yes Yes -Type of Offloading Total Contact Total Contact Cast (TCC) - Cast (TCC) - Left ($) Left ($) -Debridement - Subq, 1st 20sq cm No No -Apply Skin Sub - 1st 25 sq cm - Feet 1 1 -Epifix 18mm Disc 3 3 Pain Scale: 0-10 Numeric Is Patient Pain Free? Yes Yes - Nurse 3 - General Ulcer D/C NN Start: 01/04/24 10:39 Freq: Status: Active Protocol: Activity Type Activity Date Activity User E-sign Co-sign Detail Recorded Client Recorded Date Recorded By Document 01/04/24 11:44 [facility] 01/04/24 11:44 Document 01/11/24 11:54 JF 000 01/11/24 11:55 JF 01/04/24 01/11/24 11:44 11:54 Wound Care Center Nurse 3 1. left plantar foot -Ulcer Cleansing Rinsed/ Irrigated with Saline -Foul Odor after Cleansing No -Primary Dressing Applied AMD Dressing Mepilex Border 4x4 -AMD Dressing 4x4 1 -Mepilex Border 1 Pain Scale: 0-10 Numeric Is Patient Pain Free? Yes Yes - Visit Discharge Discharge Condition Stable Stable Ambulatory Status Ambulatory Ambulatory Transportation Private Auto Private Auto Medication Reconcilliation completed & No Yes provided to patient/care provider Clinical Summary of Care Provided Yes Yes Notes: TCC CAST Tcc size 3 APPLIED applied today. Assessment/Plan Assessment/Plan (1) Neuropathic ulcer of left foot with fat layer exposed: CODE(S): L97.522 - Non-pressure chronic ulcer of other part of left foot with fat layer exposed (2) Charcot joint of left foot: CODE(S): M14.672 - Charcot's joint, left ankle and foot (3) Type I diabetes mellitus with polyneuropathy: CODE(S): E10.42 - Type 1 diabetes mellitus with diabetic polyneuropathy (4) Diabetes mellitus with foot ulcer: CODE(S): E11.621 - Type 2 diabetes mellitus with foot ulcer; L97.509 - Non-pressure chronic ulcer of other part of unspecified foot with unspecified severity PLAN: Plan Patient seen and evaluated Radiographs obtained in office 11/13/2023 demonstrates progression of deformity with rocker-bottom foot deformity. 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 While in office patient did complete 5 weeks of local wound care with applications of Nadira and continued offloading in his [place]ak boot, however ulceration failed to demonstrate progression and thus was referred to wound care center for continued care. Patient is understanding of his Charcot arthropathy deformity and that there is no cure. He is understanding that continued offloading is needed for lifelong progressive deformity. He is understanding of the risks of ulceration, infection, and possible amputation of the lower extremity. He has also completed oral course of doxycycline 100 mg twice daily (stop date 12/28/2023). Predebridement: 0.4 cm x 0.4 cm x 0.1 cm Ulceration to the plantar aspect of the left midfoot secondary to Charcot joint arthropathy with rocker-bottom foot deformity was debrided as noted in the clinical panel above. Postdebridement ulceration measures 0.5 cm x 0.5 cm x 0.1 cm. EpiFix graft #3 applied to ulcerative bed and dressed with Adaptic touch and anchored with Steri-Strips. Site was dressed well and padded with dry sterile dressing. TCC (24962) was applied to the left lower extremity. Ulceration demonstrates continued reduction in size versus previous visit and overall improvement with application of the total contact cast. Will continue applications. I recommend total contact cast application to the left lower extremity 01/17/24. The is amendable to have a left lower extremity total contact cast applied and verbal consent was obtained. This was applied according to standard protocol in a rectus position that was also well padded according to standard protocol. He tolerated this well. He was advised to keep this clean, dry, and intact until follow-up next week. Discussed only ambulating in the approved offloading boot and not in the cast alone. He is understanding of this. He has been approved for advanced wound care product, EpiFix. Will continue applying Discussed continue proper diabetic diet for tight glycemic control to aid in wound healing. Patient does report his blood sugars tend to run around 160mg/dL and his previous A1c was 8.3% in January 2023, states most recent A1c is now under 8% but does not know number. We have discussed striving to lower A1c to 6.5%. Recommend updating A1c. Discussed protein intake to aid in wound healing. Umberto supplementation was also recommended. The following work up and care recommendations were made: Dressing: EpiFix, Adaptic touch, Steri-Strips, dry sterile dressing. Total contact cast application to the left lower extremity for continued offloading. Wash: Do not get wet. Apply cast bag when showering to keep total contact cast clean and dry. Tissue growth optimization: EpiFix Offload: Total contact cast left lower extremity Vascular: DP and PT pulses palpable Edema: Mild pedal edema secondary to Charcot arthropathy Infection: No signs of infection Pain: No pain secondary to DM type II with peripheral polyneuropathy Host factors: Charcot arthropathy with rocker-bottom foot deformity left lower extremity: DM type II with peripheral polyneuropathy I answered all the patient's questions. To return to the wound healing center in 1 week or call sooner if the patient has any questions or concerns.
[2024-01-17 16:11] VITALS: BP 123/57; PULSE 58; RESP 16; TEMP 36.3; BMI 30.2
[2024-01-25 09:22] VITALS: BP 136/46; PULSE 63; RESP 18; TEMP 36.6; BMI 30.2
--- NOTE | 2024-01-25 09:30 | PCM.WC.PN ---
History of Present Illness Date of Service: 01/25/24 Chief Complaint: Nonhealing ulceration plantar left foot secondary to Charcot arthropathy History of Wound: Patient is a 73-year-old male who first presented to office in January 2023 with complaint of deformity of the left foot. States in February 2022 that he was exited the golf cart feeling a pop in the left foot. He did remove shoe to examine however did not see any visible deformity and the site was not painful and thus he continued to play through the injury. 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 Reports deformity slowly progressed over next year. Upon radiographic imaging it was determined that he had Lisfranc injury which did result in continued deformity of the foot leading to Charcot joint arthropathy. 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 During the off season he does go to [facility], [place] minutes north of [place]. He does also follow with a welder/installer to in [place] during this time. While in [place] he was fitted with a [place] walker and states that he does not wear this however has developed an ulceration to the plantar aspect of the left foot which he states first appeared in end of October 2023 as he returned to [place]. He did follow with me in office in November and underwent 5 weeks of local wound care treatment with applications of Nadira and continued offloading in [facility] however ulceration did not change in size and thus discussed referral to the wound care center for applications of advanced wound care product and applications of TCC. Patient denies nausea, vomiting, fever, chills. Patient denies pain secondary to peripheral polyneuropathy. No further complaints. Subjective Subjective Mr. Hernandez is a 73-year-old male who continues follow-up to the wound care center for left foot plantar ulceration secondary to Charcot foot deformity. Continues to ambulate in total contact cast and does well with this. Believes he has healed and states he feels good today. Denies constitutional symptoms today. Denies further complaints today. Objective Data Objective Data Vital Signs: Vital Signs Temp Pulse Resp BP 97.3 F L 58 L 16 123/57 H 01/17/24 16:11 01/17/24 16:11 01/17/24 16:11 01/17/24 16:11 Weight: 106.594 kg Body Mass Index (BMI) 30.2 Physical Exam Const alert, oriented x3 and no apparent distress General Appearance: cooperative HEENT normocephalic Eyes General Eye: normal appearance of both eyes Neck General: normal visual inspection Lymph Lymphatic: no lymphadenopathy noted and no lymphedema noted Resp normal respiratory effort Cardio regular rate and regular rhythm Extremity normal capillary refill, no joint enlargement, no calf tenderness and no pedal edema Extremity Narrative: Vascular: DP and PT pulses palpable to the left lower extremity. CFT is less than 4 seconds to the digits. Hair growth is diminished to the digits of the foot. Normal temperature gradient. Neurologic: Absent protective sensation secondary to diabetic peripheral polyneuropathy. Gross sensation is intact. Musculoskeletal: Charcot foot arthropathy with apex of deformity of the Lisfranc joint with corresponding rocker-bottom foot deformity of the left foot. Derm: Rocker-bottom foot deformity noted with plantar ulceration at the central midfoot/cuboid region. Ulceration newly epithelialized skin consistent with healing. No palpable fluctuance/bogginess noted. No visible abscess formation. No erythema noted. No purulent drainage. No malodor noted. Debridement Note Debridement Note No debridement was completed: No debridement was completed today Post-Debridement Measurements and Additional Note: Post-Debridement Measurements/Treatment - Nurse 1 - General Ulcer Assessment Start: 01/04/24 10:39 Freq: Status: Active Protocol: LAURA Activity Type Activity Date Activity User E-sign Co-sign Detail Recorded Client Recorded Date Recorded By Document 01/04/24 10:39 RB wound 01/04/24 10:41 RB Document 01/11/24 09:31 DL 10.10.25.7 01/11/24 09:41 DL Document 01/17/24 16:11 DL 1606-1-10 01/17/24 16:15 DL 01/04/24 01/11/24 01/17/24 10:39 09:31 16:11 - Today's Visit Information Type of service Follow-up Visit Follow-up Visit Follow-up Visit (Physician/WELDING MACHINE OPERATOR RESISTANCE (Physician/WELDING MACHINE OPERATOR RESISTANCE (Physician/WELDING MACHINE OPERATOR RESISTANCE ) ) ) Arrival Mode Ambulatory Ambulatory Ambulatory Transfer Assistance None None Patient Identification Verified (Name & Yes Yes Yes ) Patient Requires Transmission-Based No No Precautions Height and Weight Body Mass Index (BMI) 30.2 30.2 30.2 BMI Classification Obese Obese Obese Vital Signs Temperature (97.8 F-99.1 F) 96.5 F L 96 F L 97.3 F L Temperature Source Temporal Temporal Temporal Pulse Rate (60-100) 59 L 53 L 58 L Pulse Location Monitor Monitor Monitor Respiratory Rate (12-18) 18 16 16 Respiratory rate source Observation Observation Observation Blood Pressure (90/60-120/80) 137/66 H 114/59 L 123/57 H Blood Pressure Mean (mm Hg) 89 77 79 Source Monitor Monitor Monitor Position Semi-Fowlers Sitting Blood Pressure Location Left Arm Left Arm History Since Last Visit- (Skip if this is Patient's initial visit) Have you changed medications since your No No No last visit? Any new allergies or adverse reactions No No No Had a fall/change in ADL's that may No No No increase risk of falls Signs or symptoms of abuse and/or No No No neglect since last visit Have you been in the hospital since your No No No last visit? Has dressing in place as prescribed Yes Yes Yes Has compression in place as prescribed No N/A Has offloadiing in place as prescribed Yes Yes Yes Experienced any changes in pain level or No No No management Left Footwear Total Contact Total Contact Cast Cast Pain Scale: 0-10 Numeric Is Patient Pain Free? Yes Yes Yes WC - Nurse 1 - General Ulcer Measurement Start: 01/04/24 10:39 Freq: Status: Active Protocol: Activity Type Activity Date Activity User E-sign Co-sign Detail Recorded Client Recorded Date Recorded By Document 01/04/24 10:39 RB wound 01/04/24 10:41 RB Document 01/11/24 09:31 DL 10.10.25.7 01/11/24 09:41 DL Document 01/17/24 16:11 DL 1606-1-10 01/17/24 16:15 DL 01/04/24 01/11/24 01/17/24 10:39 09:31 16:11 Wound Center Nurse 1 1. left plantar foot -Combined with other wound No -Current Size (cm) - Length 0.7 0.1 0.1 -Current Size (cm) - Width 0.7 0.1 0.1 -Current Size (cm) - Depth 0.1 0.1 0.1 -Total Square Cm 0.49 0.01 0.01 -Photo Taken Yes -Epithelialization Large 67-100% -Tunneling No -Undermining/Tunneling No -Circular Undermining No -Exudate Amt Medium Small -Exudate Type Serosanguineous Serosanguineous -Wound Margin Distinct, Distinct, Outline Outline Attached Attached -Granulation Amt Medium (34-66%) Large (67-100%) -Granulation Quality Lithium Lithium -Slough/Fibrin Yes -Necrosis Amt Medium (34-66%) Small (1-33%) -Necrotic Tissue Type Adherent Slough Adherent Slough -Structure Exposed N/A N/A N/A -Texture (Tere-wound Skin Appearance) Assessed,Callus Scarring No Abnormality -Moisture (Tere-wound Skin Appearance) Assessed No Abnormality No Abnormality -Color (Tere-wound Skin Appearance) Assessed No Abnormality No Abnormality -Temperature (Tere-wound Skin No Abnormality No Abnormality No Abnormality Appearance) (Pt Warm) (Pt Warm) (Pt Warm) -Tenderness on Palpation (Tere-wound No No Skin Appearance) -Ulcer Cleansing Wound Cleanser Soap and Water Soap and Water -Foul Odor after Cleansing No No No -Anesthetic Used 5% Lidocaine 5% Lidocaine Gel Gel WC - Nurse 2 - General Ulcer CM Notes Start: 01/04/24 10:39 Freq: Status: Active Protocol: Activity Type Activity Date Activity User E-sign Co-sign Detail Recorded Client Recorded Date Recorded By Document 01/04/24 10:48 BMF 10.10.25.7 01/04/24 10:57 BMF Document 01/11/24 10:10 JF 000 01/11/24 10:13 Document 01/17/24 16:18 BMF 10.10.25.7 01/17/24 16:28 BMF Edit Result 01/17/24 16:18 BMF (1) 10.10.25.7 01/17/24 16:33 BMF (1) 1. left plantar foot - Type of Offloading => Total Contact Cast => (TCC) - Left ($) 01/04/24 01/11/24 01/17/24 10:48 10:10 16:18 Wound Center Nurse 2 1. left plantar foot -Time 10:48 10:10 16:19 -Correct Patient Yes Yes Yes -Correct Side, Site, Position Yes Yes Yes -Correct Procedure Yes Yes Yes -Procedure Performed Yes Yes Yes -Type of Procedure Debridement Debridement Debridement -Clinical Debridement Subcutaneous Subcutaneous Subcutaneous -Tissue Removed Subcutaneous Subcutaneous Subcutaneous -Post Debridement (cm) - Length 1 0.8 0.5 -Post Debridement (cm) - Width 0.8 0.6 0.5 -Post Debridement (cm) - Depth 0.1 0.1 0.1 -Total Square (Post) (cm) 0.8 0.48 0.25 -Area of Debridement (cm) - Length 1 0.8 0.5 -Area of Debridement (cm) - Width 0.8 0.6 0.5 -Total Square (Area) (cm) 0.8 0.48 0.25 -Tunneling No No No -Undermining/Tunneling No No No -Circular Undermining No No No -Wound/Ulcer Outcome Not Healed Not Healed Not Healed -Ulcer Cleansing Rinsed/ Rinsed/ Rinsed/ Irrigated with Irrigated with Irrigated with Saline Saline Saline -Foul Odor after Cleansing No No No -Bioengineered Tissue Yes Yes No -Type of Bioengineered Tissue Epifix 18mm Epifix 18mm Epifix 18mm Disc Disc Disc -Expiration Date 07/06/28 07/06/28 07/06/28 -Product Lot Number [id number] -Percent Used 100 100 100 -Lot number of Saline Used [id number] -Bleeding Controlled with Pressure Pressure Pressure -Treatment Response Procedure Procedure Procedure Tolerated Well Tolerated Well Tolerated Well -Offloading Yes Yes -Type of Offloading Total Contact Total Contact Total Contact Cast (TCC) - Cast (TCC) - Cast (TCC) - Left ($) Left ($) Left ($) -Debridement - Subq, 1st 20sq cm No No No -Apply Skin Sub - 1st 25 sq cm - Feet 1 1 1 -Epifix 18mm Disc 3 3 3 Pain Scale: 0-10 Numeric Is Patient Pain Free? Yes Yes Yes WC - Nurse 3 - General Ulcer D/C NN Start: 01/04/24 10:39 Freq: Status: Active Protocol: Activity Type Activity Date Activity User E-sign Co-sign Detail Recorded Client Recorded Date Recorded By Document 01/04/24 11:44 KW f 01/04/24 11:44 KW Document 01/11/24 11:54 JF 000 01/11/24 11:55 JF Document 01/17/24 16:32 BMF 10.10.25.7 01/17/24 16:33 [facility] 01/04/24 01/11/24 01/17/24 11:44 11:54 16:32 Wound Care Center Nurse 3 1. left plantar foot -Ulcer Cleansing Rinsed/ Irrigated with Saline -Foul Odor after Cleansing No -Primary Dressing Applied AMD Dressing Mepilex Border 4x4 -Other Dressing epifix -Primary Dressing Covered/Secured with Dry Gauze, Secured with Tape -AMD Dressing 4x4 1 -Mepilex Border 1 -Wound Comment(s) tcc undercast Treatment Response Procedure Tolerated Well Pain Scale: 0-10 Numeric Is Patient Pain Free? Yes Yes Yes WC - Visit Discharge Discharge Condition Stable Stable Stable Ambulatory Status Ambulatory Ambulatory Ambulatory Transportation Private Auto Private Auto Private Auto Medication Reconcilliation completed & No Yes provided to patient/care provider Clinical Summary of Care Provided Yes Yes Notes: TCC CAST Tcc size 3 APPLIED applied today. Assessment/Plan Assessment/Plan (1) Neuropathic ulcer of left foot with fat layer exposed: CODE(S): L97.522 - Non-pressure chronic ulcer of other part of left foot with fat layer exposed (2) Charcot joint of left foot: CODE(S): M14.672 - Charcot's joint, left ankle and foot (3) Type I diabetes mellitus with polyneuropathy: CODE(S): E10.42 - Type 1 diabetes mellitus with diabetic polyneuropathy (4) Diabetes mellitus with foot ulcer: CODE(S): E11.621 - Type 2 diabetes mellitus with foot ulcer; L97.509 - Non-pressure chronic ulcer of other part of unspecified foot with unspecified severity PLAN: Plan Patient seen and evaluated Radiographs obtained in office 11/13/2023 demonstrates progression of deformity with rocker-bottom foot deformity. 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 While in office patient did complete 5 weeks of local wound care with applications of Nadira and continued offloading in his [place] boot, however ulceration failed to demonstrate progression and thus was referred to wound care center for continued care. Patient is understanding of his Charcot arthropathy deformity and that there is no cure. He is understanding that continued offloading is needed for lifelong progressive deformity. He is understanding of the risks of ulceration, infection, and possible amputation of the lower extremity. He has also completed oral course of doxycycline 100 mg twice daily (stop date 12/28/2023). Predebridement: 0.1 cm x 0.1 cm x 0.1 cm Ulceration to the plantar aspect of the left midfoot secondary to Charcot joint arthropathy with rocker-bottom foot deformity did not undergo debridement today as noted in the clinical panel above. Ulceration measures 0.1 cm x 0.1 cm x 0.1 cm with newly epithelialized skin. EpiFix graft #3 applied to ulcerative bed last week, 01/17/24 and dressed with Adaptic touch and anchored with Steri-Strips. Site was dressed well and padded with dry sterile dressing. TCC ([id number]) was applied to the left lower extremity 01/17/24. Ulceration demonstrates continued reduction in size versus previous visit with newly epithelialized skin and overall improvement with application of the total contact cast. Discussed at this time continuing to pad and protect the area and will return to [employer] boot today for continued offloading. Discussed continuing close observation to ensure he does not reopen. He is in agreement with this. He has been approved for advanced wound care product, EpiFix. Will refrain at this time due to newly epithelialized skin however if recidivism recurs will return to application. Discussed continue proper diabetic diet for tight glycemic control to aid in wound healing. Patient does report his blood sugars tend to run around 160mg/dL and his previous A1c was 8.3% in January 2023, states most recent A1c is now under 8% but does not know number. We have discussed striving to lower A1c to 6.5%. Recommend updating A1c. Discussed protein intake to aid in wound healing. Umberto supplementation was also recommended. The following work up and care recommendations were made: Dressing: EpiFix, Adaptic touch, Steri-Strips, dry sterile dressing. Total contact cast application to the left lower extremity for continued offloading. Wash: Do not get wet. Apply cast bag when showering to keep total contact cast clean and dry. Tissue growth optimization: EpiFix Offload: Total contact cast left lower extremity Vascular: DP and PT pulses palpable Edema: Mild pedal edema secondary to Charcot arthropathy Infection: No signs of infection Pain: No pain secondary to DM type II with peripheral polyneuropathy Host factors: Charcot arthropathy with rocker-bottom foot deformity left lower extremity: DM type II with peripheral polyneuropathy I answered all the patient's questions. To return to the wound healing center in 1 week or call sooner if the patient has any questions or concerns.
[2024-02-01 09:44] VITALS: BP 140/66; PULSE 52; RESP 18; TEMP 36.1; BMI 30.2
--- NOTE | 2024-02-01 09:53 | PCM.WC.PN ---
History of Present Illness Date of Service: 02/01/24 Chief Complaint: Nonhealing ulceration plantar left foot secondary to Charcot arthropathy History of Wound: Patient is a 73-year-old male who first presented to office in January 2023 with complaint of deformity of the left foot. States in February 2022 that he was exited the golf cart feeling a pop in the left foot. He did remove shoe to examine however did not see any visible deformity and the site was not painful and thus he continued to play through the injury. 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 Reports deformity slowly progressed over next year. Upon radiographic imaging it was determined that he had Lisfranc injury which did result in continued deformity of the foot leading to Charcot joint arthropathy. 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 During the off season he does go to [facility], 45 minutes north of [place]. He does also follow with a as400 operator to in [place] during this time. While in [place] he was fitted with a Augustine walker and states that he does not wear this however has developed an ulceration to the plantar aspect of the left foot which he states first appeared in end of October 2023 as he returned to [place]. He did follow with me in office in November and underwent 5 weeks of local wound care treatment with applications of Ndaira and continued offloading in Augustine boot however ulceration did not change in size and thus discussed referral to the wound care center for applications of advanced wound care product and applications of TCC. Patient denies nausea, vomiting, fever, chills. Patient denies pain secondary to peripheral polyneuropathy. No further complaints. Subjective Subjective Mr. Hernandez is a 73-year-old male who continues follow-up to the wound care center for left foot plantar ulceration secondary to Charcot foot deformity. Has returned to wearing his Augustine boot. Reports this is going well but he has some scant drainage due to skin softening at the previous ulcer site. Denies constitutional symptoms today. Denies further complaints today. Objective Data Objective Data Vital Signs: Vital Signs Temp Pulse Resp BP 97 F L 52 L 18 140/66 H 02/01/24 09:44 02/01/24 09:44 02/01/24 09:44 02/01/24 09:44 Weight: 106.594 kg Body Mass Index (BMI) 30.2 Physical Exam Const alert, oriented x3 and no apparent distress General Appearance: cooperative HEENT normocephalic Eyes General Eye: normal appearance of both eyes Neck General: normal visual inspection Lymph Lymphatic: no lymphadenopathy noted and no lymphedema noted Resp normal respiratory effort Cardio regular rate and regular rhythm Extremity normal capillary refill, no joint enlargement, no calf tenderness and no pedal edema Extremity Narrative: Vascular: DP and PT pulses palpable to the left lower extremity. CFT is less than 4 seconds to the digits. Hair growth is diminished to the digits of the foot. Normal temperature gradient. Neurologic: Absent protective sensation secondary to diabetic peripheral polyneuropathy. Gross sensation is intact. Musculoskeletal: Charcot foot arthropathy with apex of deformity of the Lisfranc joint with corresponding rocker-bottom foot deformity of the left foot. Derm: Rocker-bottom foot deformity noted with plantar ulceration at the central midfoot/cuboid region. Ulceration newly epithelialized skin consistent with healing. No palpable fluctuance/bogginess noted. No visible abscess formation. No erythema noted. No purulent drainage. No malodor noted. Debridement Note Debridement Note No debridement was completed: No debridement was completed today Post-Debridement Measurements and Additional Note: Post-Debridement Measurements/Treatment - Nurse 1 - General Ulcer Assessment Start: 01/04/24 10:39 Freq: Status: Active Protocol: LAURA Activity Type Activity Date Activity User E-sign Co-sign Detail Recorded Client Recorded Date Recorded By Document 01/04/24 10:39 RB wound 01/04/24 10:41 RB Document 01/11/24 09:31 DL 10.10.25.7 01/11/24 09:41 DL Document 01/17/24 16:11 DL 1606-1-10 01/17/24 16:15 DL Document 01/25/24 09:22 JF [id number] 01/25/24 09:31 JF Document 02/01/24 09:44 DL [id number] 02/01/24 09:52 DL 01/04/24 01/11/24 01/17/24 10:39 09:31 16:11 - Today's Visit Information Type of service Follow-up Visit Follow-up Visit Follow-up Visit (Physician/CLOTHES PRESSER (Physician/CLOTHES PRESSER (Physician/CLOTHES PRESSER ) ) ) Arrival Mode Ambulatory Ambulatory Ambulatory Transfer Assistance None None Patient Identification Verified (Name & Yes Yes Yes ) Patient Requires Transmission-Based No No Precautions Finger Stick Blood Sugar(mg/dl) (if indicated): Blood Sugar Height and Weight Body Mass Index (BMI) 30.2 30.2 30.2 BMI Classification Obese Obese Obese Vital Signs Temperature (97.8 F-99.1 F) 96.5 F L 96 F L 97.3 F L Temperature Source Temporal Temporal Temporal Pulse Rate (60-100) 59 L 53 L 58 L Pulse Location Monitor Monitor Monitor Respiratory Rate (12-18) 18 16 16 Respiratory rate source Observation Observation Observation Blood Pressure (90/60-120/80) 137/66 H 114/59 L 123/57 H Blood Pressure Mean (mm Hg) 89 77 79 Source Monitor Monitor Monitor Position Semi-Fowlers Sitting Blood Pressure Location Left Arm Left Arm History Since Last Visit- (Skip if this is Patient's initial visit) Have you changed medications since your No No No last visit? Any new allergies or adverse reactions No No No Had a fall/change in ADL's that may No No No increase risk of falls Signs or symptoms of abuse and/or No No No neglect since last visit Have you been in the hospital since your No No No last visit? Has dressing in place as prescribed Yes Yes Yes Has compression in place as prescribed No N/A Has offloadiing in place as prescribed Yes Yes Yes Experienced any changes in pain level or No No No management Left Footwear Total Contact Total Contact Cast Cast Pain Scale: 0-10 Numeric Is Patient Pain Free? Yes Yes Yes 01/25/24 02/01/24 09:22 09:44 WC - Today's Visit Information Type of service Follow-up Visit Follow-up Visit (Physician/CLOTHES PRESSER (Physician/CLOTHES PRESSER ) ) Arrival Mode Ambulatory Ambulatory Transfer Assistance None Patient Identification Verified (Name & Yes Yes ) Patient Requires Transmission-Based No No Precautions Finger Stick Blood Sugar(mg/dl) (if 167 indicated): Blood Sugar Stated by Patient Height and Weight Body Mass Index (BMI) 30.2 30.2 BMI Classification Obese Obese Vital Signs Temperature (97.8 F-99.1 F) 97.8 F 97 F L Temperature Source Temporal Temporal Pulse Rate (60-100) 63 52 L Pulse Location Monitor Respiratory Rate (12-18) 18 18 Respiratory rate source Observation Observation Blood Pressure (90/60-120/80) 136/46 H 140/66 H Blood Pressure Mean (mm Hg) 76 90 Source Monitor Monitor Position Semi-Fowlers Blood Pressure Location Left Arm History Since Last Visit- (Skip if this is Patient's initial visit) Have you changed medications since your No No last visit? Any new allergies or adverse reactions No No Had a fall/change in ADL's that may No No increase risk of falls Signs or symptoms of abuse and/or No No neglect since last visit Have you been in the hospital since your No No last visit? Has dressing in place as prescribed Yes Yes Has compression in place as prescribed N/A N/A Has offloadiing in place as prescribed Yes Yes Experienced any changes in pain level or No No management Left Footwear Removable Cast Walker/Walking Boot Pain Scale: 0-10 Numeric Is Patient Pain Free? Yes Yes WC - Nurse 1 - General Ulcer Measurement Start: 01/04/24 10:39 Freq: Status: Active Protocol: Activity Type Activity Date Activity User E-sign Co-sign Detail Recorded Client Recorded Date Recorded By Document 01/04/24 10:39 RB wound 01/04/24 10:41 RB Document 01/11/24 09:31 DL 10.10.25.7 01/11/24 09:41 DL Document 01/17/24 16:11 DL 1606-1-10 01/17/24 16:15 DL Document 01/25/24 09:22 JF [id number] 01/25/24 09:31 JF Document 02/01/24 09:44 DL [id number] 02/01/24 09:52 DL 01/04/24 01/11/24 01/17/24 10:39 09:31 16:11 Wound Center Nurse 1 1. left plantar foot -Combined with other wound No -Current Size (cm) - Length 0.7 0.1 0.1 -Current Size (cm) - Width 0.7 0.1 0.1 -Current Size (cm) - Depth 0.1 0.1 0.1 -Total Square Cm 0.49 0.01 0.01 -Photo Taken Yes -Epithelialization Large 67-100% -Tunneling No -Undermining/Tunneling No -Circular Undermining No -Exudate Amt Medium Small -Exudate Type Serosanguineous Serosanguineous -Wound Margin Distinct, Distinct, Outline Outline Attached Attached -Granulation Amt Medium (34-66%) Large (67-100%) -Granulation Quality [place] -Slough/Fibrin Yes -Necrosis Amt Medium (34-66%) Small (1-33%) -Necrotic Tissue Type Adherent Slough Adherent Slough -Structure Exposed N/A N/A N/A -Texture (Tere-wound Skin Appearance) Assessed,Callus Scarring No Abnormality -Moisture (Tere-wound Skin Appearance) Assessed No Abnormality No Abnormality -Color (Tere-wound Skin Appearance) Assessed No Abnormality No Abnormality -Temperature (Tere-wound Skin No Abnormality No Abnormality No Abnormality Appearance) (Pt Warm) (Pt Warm) (Pt Warm) -Tenderness on Palpation (Tere-wound No No Skin Appearance) -Ulcer Cleansing Wound Cleanser Soap and Water Soap and Water -Foul Odor after Cleansing No No No -Anesthetic Used 5% Lidocaine 5% Lidocaine Gel Gel Lower Limb Edema Present 01/25/24 02/01/24 09:22 09:44 Wound Center Nurse 1 1. left plantar foot -Combined with other wound No -Current Size (cm) - Length 0.1 0.1 -Current Size (cm) - Width 0.1 0.1 -Current Size (cm) - Depth 0.1 0.1 -Total Square Cm 0.01 0.01 -Photo Taken Yes Yes -Epithelialization Large 67-100% -Tunneling No -Undermining/Tunneling No -Circular Undermining No -Exudate Amt None Present Small -Exudate Type Serosanguineous -Wound Margin Flat & Intact -Granulation Amt None Present (0 Large (67-100%) %) -Granulation Quality Pale -Slough/Fibrin No -Necrosis Amt None Present (0 %) -Necrotic Tissue Type -Structure Exposed N/A N/A -Texture (Tere-wound Skin Appearance) No Abnormality, Assessed -Moisture (Tere-wound Skin Appearance) No Abnormality, Maceration Dry/Scaly -Color (Tere-wound Skin Appearance) No Abnormality No Abnormality -Temperature (Tere-wound Skin No Abnormality No Abnormality Appearance) (Pt Warm) (Pt Warm) -Tenderness on Palpation (Tere-wound No No Skin Appearance) -Ulcer Cleansing Soap and Water Rinsed/ Irrigated with Saline -Foul Odor after Cleansing No No -Anesthetic Used Lower Limb Edema Present No WC - Nurse 2 - General Ulcer CM Notes Start: 01/04/24 10:39 Freq: Status: Active Protocol: Activity Type Activity Date Activity User E-sign Co-sign Detail Recorded Client Recorded Date Recorded By Document 01/04/24 10:48 BMF 10..25.7 01/04/24 10:57 BMF Document 01/11/24 10:10 JF 000 01/11/24 10:13 JF Document 01/17/24 16:18 BMF 10..25.7 01/17/24 16:28 BMF Edit Result 01/17/24 16:18 BMF (1) 10..25.7 01/17/24 16:33 BMF Document 01/25/24 09:35 BMF [id number] 01/25/24 09:43 BMF (1) 1. left plantar foot - Type of Offloading => Total Contact Cast => (TCC) - Left ($) 01/04/24 01/11/24 01/17/24 10:48 10:10 16:18 Wound Center Nurse 2 1. left plantar foot -Time 10:48 10:10 16:19 -Correct Patient Yes Yes Yes -Correct Side, Site, Position Yes Yes Yes -Correct Procedure Yes Yes Yes -Procedure Performed Yes Yes Yes -Type of Procedure Debridement Debridement Debridement -Clinical Debridement Subcutaneous Subcutaneous Subcutaneous -Tissue Removed Subcutaneous Subcutaneous Subcutaneous -Post Debridement (cm) - Length 1 0.8 0.5 -Post Debridement (cm) - Width 0.8 0.6 0.5 -Post Debridement (cm) - Depth 0.1 0.1 0.1 -Total Square (Post) (cm) 0.8 0.48 0.25 -Area of Debridement (cm) - Length 1 0.8 0.5 -Area of Debridement (cm) - Width 0.8 0.6 0.5 -Total Square (Area) (cm) 0.8 0.48 0.25 -Tunneling No No No -Undermining/Tunneling No No No -Circular Undermining No No No -Wound/Ulcer Outcome Not Healed Not Healed Not Healed -Ulcer Cleansing Rinsed/ Rinsed/ Rinsed/ Irrigated with Irrigated with Irrigated with Saline Saline Saline -Foul Odor after Cleansing No No No -Bioengineered Tissue Yes Yes No -Type of Bioengineered Tissue Epifix 18mm Epifix 18mm Epifix 18mm Disc Disc Disc -Expiration Date 07/06/28 07/06/28 07/06/28 -Product Lot Number [id number] -Percent Used 100 100 100 -Lot number of Saline Used [id number] -Bleeding Controlled with Pressure Pressure Pressure -Treatment Response Procedure Procedure Procedure Tolerated Well Tolerated Well Tolerated Well -Offloading Yes Yes -Type of Offloading Total Contact Total Contact Total Contact Cast (TCC) - Cast (TCC) - Cast (TCC) - Left ($) Left ($) Left ($) -Debridement - Subq, 1st 20sq cm No No No -Apply Skin Sub - 1st 25 sq cm - Feet 1 1 1 -Epifix 18mm Disc 3 3 3 Pain Scale: 0-10 Numeric Is Patient Pain Free? Yes Yes Yes 01/25/24 09:35 Wound Center Nurse 2 1. left plantar foot -Time 09:43 -Correct Patient -Correct Side, Site, Position -Correct Procedure -Procedure Performed -Type of Procedure -Clinical Debridement -Tissue Removed -Post Debridement (cm) - Length 0.1 -Post Debridement (cm) - Width 0.1 -Post Debridement (cm) - Depth 0.1 -Total Square (Post) (cm) 0.01 -Area of Debridement (cm) - Length 0.1 -Area of Debridement (cm) - Width 0.1 -Total Square (Area) (cm) 0.01 -Tunneling No -Undermining/Tunneling No -Circular Undermining No -Wound/Ulcer Outcome Not Healed -Ulcer Cleansing -Foul Odor after Cleansing -Bioengineered Tissue -Type of Bioengineered Tissue -Expiration Date -Product Lot Number -Percent Used -Lot number of Saline Used -Bleeding Controlled with NA -Treatment Response -Offloading -Type of Offloading -Debridement - Subq, 1st 20sq cm -Apply Skin Sub - 1st 25 sq cm - Feet -Epifix 18mm Disc Pain Scale: 0-10 Numeric Is Patient Pain Free? Yes - Nurse 3 - General Ulcer D/C NN Start: 01/04/24 10:39 Freq: Status: Active Protocol: Activity Type Activity Date Activity User E-sign Co-sign Detail Recorded Client Recorded Date Recorded By Document 01/04/24 11:44 KW [facility] 01/04/24 11:44 KW Document 01/11/24 11:54 JF 000 01/11/24 11:55 JF Document 01/17/24 16:32 [facility] 10.10.25.7 01/17/24 16:33 BMF Document 01/25/24 09:43 [facility] [id number] 01/25/24 09:46 BMF 01/04/24 01/11/24 01/17/24 11:44 11:54 16:32 Wound Care Center Nurse 3 1. left plantar foot -Ulcer Cleansing Rinsed/ Irrigated with Saline -Foul Odor after Cleansing No -Primary Dressing Applied AMD Dressing Mepilex Border 4x4 -Other Dressing epifix -Primary Dressing Covered/Secured with Dry Gauze, Secured with Tape -AMD Dressing 4x4 1 -Mepilex Border 1 -Wound Comment(s) tcc undercast Treatment Response Procedure Tolerated Well Pain Scale: 0-10 Numeric Is Patient Pain Free? Yes Yes Yes WC - Visit Discharge Discharge Condition Stable Stable Stable Ambulatory Status Ambulatory Ambulatory Ambulatory Transportation Private Auto Private Auto Private Auto Medication Reconcilliation completed & No Yes provided to patient/care provider Clinical Summary of Care Provided Yes Yes Notes: TCC CAST Tcc size 3 APPLIED applied today. 01/25/24 09:43 Wound Care Center Nurse 3 1. left plantar foot -Ulcer Cleansing -Foul Odor after Cleansing -Primary Dressing Applied Mepilex Border -Other Dressing 2 -Primary Dressing Covered/Secured with -AMD Dressing 4x4 -Mepilex Border 2 -Wound Comment(s) Treatment Response Procedure Tolerated Well Pain Scale: 0-10 Numeric Is Patient Pain Free? Yes WC - Visit Discharge Discharge Condition Stable Ambulatory Status Ambulatory Transportation Private Auto Medication Reconcilliation completed & provided to patient/care provider Clinical Summary of Care Provided Notes: Assessment/Plan Assessment/Plan (1) Neuropathic ulcer of left foot with fat layer exposed: CODE(S): L97.522 - Non-pressure chronic ulcer of other part of left foot with fat layer exposed (2) Charcot joint of left foot: CODE(S): M14.672 - Charcot's joint, left ankle and foot (3) Type I diabetes mellitus with polyneuropathy: CODE(S): E10.42 - Type 1 diabetes mellitus with diabetic polyneuropathy (4) Diabetes mellitus with foot ulcer: CODE(S): E11.621 - Type 2 diabetes mellitus with foot ulcer; L97.509 - Non-pressure chronic ulcer of other part of unspecified foot with unspecified severity PLAN: Plan Patient seen and evaluated Radiographs obtained in office 11/13/2023 demonstrates progression of deformity with rocker-bottom foot deformity. 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 While in office patient did complete 5 weeks of local wound care with applications of Nadira and continued offloading in his Augustine boot, however ulceration failed to demonstrate progression and thus was referred to wound care center for continued care. Patient is understanding of his Charcot arthropathy deformity and that there is no cure. He is understanding that continued offloading is needed for lifelong progressive deformity. He is understanding of the risks of ulceration, infection, and possible amputation of the lower extremity. He has also completed oral course of doxycycline 100 mg twice daily (stop date 12/28/2023). Predebridement: 0.1 cm x 0.1 cm x 0.1 cm Ulceration to the plantar aspect of the left midfoot secondary to Charcot joint arthropathy with rocker-bottom foot deformity did not undergo debridement today as noted in the clinical panel above. Ulceration measures 0.1 cm x 0.1 cm x 0.1 cm with newly epithelialized skin. Padded protective dressing demonstrated scant serosanginous drainge likely due to continued pressure when showering. EpiFix graft #3 applied to ulcerative bed 01/17/24. Discussed continued padding/protective offloading dressing to the site. Ulceration demonstrates newly epithelialized skin and overall improvement with previous applications of the total contact cast. Discussed at this time continuing to pad and protect the area and continue with RESIGHINI boot today for continued offloading. Discussed continuing close observation to ensure he does not reopen. He is in agreement with this. He was also sent to the office for a molded insert to aid in continued offloading inside of the Augustine boot to discourage recidivism. He has been approved for advanced wound care product, EpiFix. Will refrain at this time due to newly epithelialized skin however if recidivism recurs will return to application. Discussed continue proper diabetic diet for tight glycemic control to aid in wound healing. Patient does report his blood sugars tend to run around 160mg/dL and his previous A1c was 8.3% in January 2023, states most recent A1c is now under 8% but does not know number. We have discussed striving to lower A1c to 6.5%. Recommend updating A1c. Discussed protein intake to aid in wound healing. Umberto supplementation was also recommended. The following work up and care recommendations were made: Dressing: EpiFix, Adaptic touch, Steri-Strips, dry sterile dressing. Total contact cast application to the left lower extremity for continued offloading. Wash: Do not get wet. Apply cast bag when showering to keep total contact cast clean and dry. Tissue growth optimization: EpiFix Offload: Total contact cast left lower extremity Vascular: DP and PT pulses palpable Edema: Mild pedal edema secondary to Charcot arthropathy Infection: No signs of infection Pain: No pain secondary to DM type II with peripheral polyneuropathy Host factors: Charcot arthropathy with rocker-bottom foot deformity left lower extremity: DM type II with peripheral polyneuropathy I answered all the patient's questions. To return to the wound healing center in 1 week or call sooner if the patient has any questions or concerns.
--- NOTE | 2024-02-07 09:07 | WC ---
PHOTO 02/01/24 LEFT PLANTAR
== END 2024-02-03 23:59 | disposition home or self-care (01) ==
LOC: WC 09:30
PROVIDERS: Referring Provider Student in an Organized Health Care Education/Training Program; Visit Provider Student in an Organized Health Care Education/Training Program
DX: E11.621 Type 2 diabetes mellitus with foot ulcer (principal); L97.522 Non-pressure chronic ulcer of other part of left foot with fat layer exposed; E11.42 Type 2 diabetes mellitus with diabetic polyneuropathy; M14.672 Charcot's joint, left ankle and foot
CPT/HCPCS: 15275; 29445; 97597; 99213; Q4186; G0463

== ENCOUNTER 2024-02-29 09:45 | Outpatient (RCR) | payer MEDICARE, OTHER, SELFPAY ==
[2024-02-04 00:28] VITALS: BP 131/63; PULSE 49; RESP 16; TEMP 36.1; BMI 30.2
[2024-02-08 09:31] VITALS: BMI 30.2
[2024-02-15 09:57] VITALS: BP 133/50; PULSE 60; RESP 16; TEMP 36.4; BMI 30.2
[2024-02-22 09:54] VITALS: BP 123/60; PULSE 62; RESP 18; TEMP 36.2; BMI 30.2
[2024-02-29 09:47] VITALS: BP 105/43; PULSE 61; RESP 18; TEMP 35.3; BMI 30.2
== END 2024-03-04 23:59 | disposition home or self-care (01) ==
LOC: WC 09:45
PROVIDERS: Referring Provider Student in an Organized Health Care Education/Training Program; Visit Provider Student in an Organized Health Care Education/Training Program
DX: E11.621 Type 2 diabetes mellitus with foot ulcer (principal); L97.522 Non-pressure chronic ulcer of other part of left foot with fat layer exposed; E11.42 Type 2 diabetes mellitus with diabetic polyneuropathy; Z96.41 Presence of insulin pump (external) (internal); M14.672 Charcot's joint, left ankle and foot
CPT/HCPCS: 15275; 29445; 99213; Q4186; G0463

== ENCOUNTER 2024-03-21 09:45 | Outpatient (RCR) | payer MEDICARE, OTHER, SELFPAY ==
[2024-03-05 00:14] VITALS: BP 131/63; PULSE 49; RESP 16; TEMP 36.1; BMI 30.2
[2024-03-07 10:02] VITALS: BP 119/36; PULSE 54; RESP 16; TEMP 36.4; BMI 30.2
--- NOTE | 2024-03-07 17:26 | PCM.WC.PN ---
History of Present Illness Date of Service: 03/07/24 Chief Complaint: Nonhealing ulceration plantar left foot secondary to Charcot arthropathy History of Wound: Patient is a 73-year-old male who first presented to office in January 2023 with complaint of deformity of the left foot. States in February 2022 that he was exited the golf cart feeling a pop in the left foot. He did remove shoe to examine however did not see any visible deformity and the site was not painful and thus he continued to play through the injury. 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 Reports deformity slowly progressed over next year. Upon radiographic imaging it was determined that he had Lisfranc injury which did result in continued deformity of the foot leading to Charcot joint arthropathy. 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 During the off season he does go to [facility], 45 minutes north of [place]. He does also follow with a dredge pipeman to in [place] during this time. While in [place] he was fitted with a [place] walker and states that he does not wear this however has developed an ulceration to the plantar aspect of the left foot which he states first appeared in end of October 2023 as he returned to [place]. He did follow with me in office in November and underwent 5 weeks of local wound care treatment with applications of Nadira and continued offloading in [facility] however ulceration did not change in size and thus discussed referral to the wound care center for applications of advanced wound care product and applications of TCC. Patient denies nausea, vomiting, fever, chills. Patient denies pain secondary to peripheral polyneuropathy. No further complaints. Subjective Subjective Mr. Hernandez is a 73-year-old male who continues follow-up to the wound care center for left foot plantar ulceration secondary to Charcot foot deformity. He continues TCC and is doing well with this. States he will be leaving for [place] at the end of next week. No reported issues. Denies constitutional symptoms today. Denies further complaints today. Objective Data Objective Data Vital Signs: Vital Signs Temp Pulse Resp BP O2 Del Method 97.5 F L 54 L 16 119/36 L Room Air 03/07/24 10:02 03/07/24 10:02 03/07/24 10:02 03/07/24 10:03/07/24 10:02 Oxygen Delivery Method Room Air Weight: 106.594 kg Body Mass Index (BMI) 30.2 Physical Exam Const alert, oriented x3 and no apparent distress General Appearance: cooperative HEENT normocephalic Eyes General Eye: normal appearance of both eyes Neck General: normal visual inspection Lymph Lymphatic: no lymphadenopathy noted and no lymphedema noted Resp normal respiratory effort Cardio regular rate and regular rhythm Extremity normal capillary refill, no joint enlargement, no calf tenderness and no pedal edema Extremity Narrative: Vascular: DP and PT pulses palpable to the left lower extremity. CFT is less than 4 seconds to the digits. Hair growth is diminished to the digits of the foot. Normal temperature gradient. Neurologic: Absent protective sensation secondary to diabetic peripheral polyneuropathy. Gross sensation is intact. Musculoskeletal: Charcot foot arthropathy with apex of deformity of the Lisfranc joint with corresponding rocker-bottom foot deformity of the left foot. Derm: Rocker-bottom foot deformity noted with plantar ulceration at the central midfoot/cuboid region. Ulceration demonstrates newly epithelialized skin with improving thickness to skin. Site healing well. There is palpable osseous deformity sub ulceration secondary to Charcot deformity. No palpable fluctuance/bogginess noted. No visible abscess formation. No erythema noted. No purulent drainage. No malodor noted. Skin no rashes or lesions noted, skin turgor normal and no jaundice Neuro moves all extremities Debridement Note Debridement Note No debridement was completed: No debridement was completed today Post-Debridement Measurements and Additional Note: Post-Debridement Measurements/Treatment - Nurse 1 - General Ulcer Assessment Start: 03/07/24 10:02 Freq: Status: Active Protocol: LAURA Activity Type Activity Date Activity User E-sign Co-sign Detail Recorded Client Recorded Date Recorded By Document 03/07/24 10:02 [id number] 03/07/24 10:12 03/07/24 10:02 - Today's Visit Information Type of service Follow-up Visit (Physician/GROUND CREW LINESMAN ) Arrival Mode Ambulatory Transfer Assistance None Patient Identification Verified (Name & Yes ) Height and Weight Body Mass Index (BMI) 30.2 BMI Classification Obese Vital Signs Temperature (97.8 F-99.1 F) 97.5 F L Temperature Source Temporal Pulse Rate (60-100) 54 L Pulse Location Monitor Respiratory Rate (12-18) 16 Respiratory rate source Observation Oxygen Delivery Method Room Air Blood Pressure (90/60-120/80) 119/36 L Blood Pressure Mean (mm Hg) 63 Source Monitor Position Sitting Blood Pressure Location Right Arm History Since Last Visit- (Skip if this is Patient's initial visit) Have you changed medications since your No last visit? Any new allergies or adverse reactions No Had a fall/change in ADL's that may No increase risk of falls Signs or symptoms of abuse and/or No neglect since last visit Have you been in the hospital since your No last visit? Has dressing in place as prescribed Yes Has compression in place as prescribed N/A Has offloadiing in place as prescribed Yes Experienced any changes in pain level or No management Left Footwear Total Contact Cast Right Footwear Diabetic Shoe Pain Scale: 0-10 Numeric Is Patient Pain Free? Yes - Nurse 1 - General Ulcer Measurement Start: 03/07/24 10:02 Freq: Status: Active Protocol: Activity Type Activity Date Activity User E-sign Co-sign Detail Recorded Client Recorded Date Recorded By Document 03/07/24 10:02 [id number] 03/07/24 10:12 03/07/24 10:02 Wound Center Nurse 1 1. left plantar foot -Combined with other wound No -Current Size (cm) - Length 0.1 -Current Size (cm) - Width 0.1 -Current Size (cm) - Depth 0.1 -Total Square Cm 0.01 -Texture (Tere-wound Skin Appearance) Assessed -Moisture (Tere-wound Skin Appearance) Assessed -Color (Tere-wound Skin Appearance) Assessed - Nurse 2 - General Ulcer CM Notes Start: 03/07/24 10:02 Freq: Status: Active Protocol: Activity Type Activity Date Activity User E-sign Co-sign Detail Recorded Client Recorded Date Recorded By Document 03/07/24 10:14 BMF [id number] 03/07/24 10:16 BMF Edit Result 03/07/24 10:14 BMF (1) [id number] 03/07/24 10:34 BMF (1) 1. left plantar foot - Type of Offloading => Total Contact Cast => (TCC) - Left ($) 03/07/24 10:14 Wound Center Nurse 2 -Time 10:14 -Post Debridement (cm) - Length 0.1 -Post Debridement (cm) - Width 0.1 -Post Debridement (cm) - Depth 0.1 -Total Square (Post) (cm) 0.01 -Area of Debridement (cm) - Length 0.1 -Area of Debridement (cm) - Width 0.1 -Total Square (Area) (cm) 0.01 -Tunneling No -Undermining/Tunneling No -Circular Undermining No -Wound/Ulcer Outcome Not Healed -Bleeding Controlled with NA -Type of Offloading Total Contact Cast (TCC) - Left ($) Pain Scale: 0-10 Numeric Is Patient Pain Free? Yes - Nurse 3 - General Ulcer D/C NN Start: 03/07/24 10:02 Freq: Status: Active Protocol: Activity Type Activity Date Activity User E-sign Co-sign Detail Recorded Client Recorded Date Recorded By Document 03/07/24 10:32 [id number] 03/07/24 10:34 03/07/24 10:32 Wound Care Center Nurse 3 1. left plantar foot -Ulcer Cleansing Not Cleansed -Foul Odor after Cleansing No -Wound Comment(s) used his own mepilex Pain Scale: 0-10 Numeric Is Patient Pain Free? Yes - Visit Discharge Discharge Condition Stable Ambulatory Status Ambulatory Transportation Private Auto Assessment/Plan Assessment/Plan (1) Neuropathic ulcer of left foot with fat layer exposed: CODE(S): L97.522 - Non-pressure chronic ulcer of other part of left foot with fat layer exposed (2) Charcot joint of left foot: CODE(S): M14.672 - Charcot's joint, left ankle and foot (3) Type I diabetes mellitus with polyneuropathy: CODE(S): E10.42 - Type 1 diabetes mellitus with diabetic polyneuropathy (4) Diabetes mellitus with foot ulcer: CODE(S): E11.621 - Type 2 diabetes mellitus with foot ulcer; L97.509 - Non-pressure chronic ulcer of other part of unspecified foot with unspecified severity PLAN: Plan Patient seen and evaluated Radiographs obtained in office 11/13/2023 demonstrates progression of deformity with rocker-bottom foot deformity. 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 While in office patient did complete 5 weeks of local wound care with applications of Nadira and continued offloading in his [facility], however ulceration failed to demonstrate progression and thus was referred to wound care center for continued care. Patient is understanding of his Charcot arthropathy deformity and that there is no cure. He is understanding that continued offloading is needed for lifelong progressive deformity. He is understanding of the risks of ulceration, infection, and possible amputation of the lower extremity. He completed oral course of doxycycline 100 mg twice daily (stop date 12/28/2023). Ulceration has reopened despite offloading in [facility] with soft Diabetic insert. Predebridement: 0.1 cm x 0.1 cm x 0.1 cm with eipthealized skin Ulceration to the plantar aspect of the left midfoot secondary to Charcot joint arthropathy with rocker-bottom foot deformity did not undergo debridement today as noted in the clinical panel above. Ulceration measures 0.1 cm x 0.1 cm x 0.1 cm. EpiFix graft #4 applied to ulcerative bed 02/08/24, but with continuation of epithelialized skin we will continue to refrain from application today. Dry sterile dressing applied. Discussed continued padding/protective offloading dressing to the site with total contact cast to prevent recidivism of ulcerative site. Ulceration continues epithelialized skin today with less evidence of fragility but has history of reopening upon return to [facility] due to palpable bone secondary to deformity. He has demonstrated improvement with previous applications of the total contact cast, will continue with casting to prevent recidivism. I recommend total contact cast application ([id number]) to the left lower extremity 03/07/24. The is amendable to have a left lower extremity total contact cast applied and verbal consent was obtained. This was applied according to standard protocol in a rectus position that was also well padded according to standard protocol. He tolerated this well. He was advised to keep this clean, dry, and intact until follow-up next week. Discussed only ambulating in the approved offloading boot and not in the cast alone. He is understanding of this. In anticipation of return to [facility] is offloading insert inside of the boot was modified for additional offloading at the site of the rocker-bottom deformity. He has been approved for advanced wound care product, EpiFix, will continue application if re-ulcerates. Discussed continue proper diabetic diet for tight glycemic control to aid in wound healing. Patient does report his blood sugars tend to run around 160mg/dL and his previous A1c was 8.3% in January 2023, states most recent A1c is now under 8% but does not know number. We have discussed striving to lower A1c to 6.5%. Recommend updating A1c. Discussed protein intake to aid in wound healing. Umberto supplementation was also recommended. Discussed possibility of once he returns to [place] next week that it is likely he will need to undergo modification of his [place] boot with Certified Master Safecracker vs a surgical planing of prominent bone of his Charcot foot deformity site to reduce risk to future ulceration so that he may continue his [place] boot. The following work up and care recommendations were made: Dressing: Dry sterile/protective dressing. Total contact cast application to the left lower extremity for continued offloading. Wash: Do not get wet. Apply cast bag when showering to keep total contact cast clean and dry. Tissue growth optimization: EpiFix Offload: Total contact cast Left lower extremity Vascular: DP and PT pulses palpable Edema: Mild pedal edema secondary to Charcot arthropathy Infection: No signs of infection Pain: No pain secondary to DM type II with peripheral polyneuropathy Host factors: Charcot arthropathy with rocker-bottom foot deformity left lower extremity: DM type II with peripheral polyneuropathy I answered all the patient's questions. To return to the wound healing center in 1 week or call sooner if the patient has any questions or concerns.
[2024-03-14 11:07] VITALS: BP 130/52; RESP 18; TEMP 35.9; BMI 30.2
--- NOTE | 2024-03-14 11:42 | PN.PCM_ITS ---
History of Present Illness Date of Service: 03/07/24 Chief Complaint: Nonhealing ulceration plantar left foot secondary to Charcot arthropathy History of Wound: Patient is a 73-year-old male who first presented to office in January 2023 with complaint of deformity of the left foot. States in February 2022 that he was exited the golf cart feeling a pop in the left foot. He did remove shoe to examine however did not see any visible deformity and the site was not painful and thus he continued to play through the injury. 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 Reports deformity slowly progressed over next year. Upon radiographic imaging it was determined that he had Lisfranc injury which did result in continued deformity of the foot leading to Charcot joint arthropathy. 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 During the off season he does go to [facility], 45 minutes north of [place]. He does also follow with a veneer clipper helper to in [place] during this time. While in [place] he was fitted with a [place] walker and states that he does not wear this however has developed an ulceration to the plantar aspect of the left foot which he states first appeared in end of October 2023 as he returned to [place]. He did follow with me in office in November and underwent 5 weeks of local wound care treatment with applications of Nadira and continued offloading in [facility] however ulceration did not change in size and thus discussed referral to the wound care center for applications of advanced wound care product and applications of TCC. Patient denies nausea, vomiting, fever, chills. Patient denies pain secondary to peripheral polyneuropathy. No further complaints. Subjective Subjective Mr. Hernandez is a 73-year-old male who continues follow-up to the wound care center for left foot plantar ulceration secondary to Charcot foot deformity. He continues TCC and is doing well with this. States he will be leaving for [place] at the end of next week. No reported issues. Denies constitutional symptoms today. Denies further complaints today. Objective Data Objective Data Vital Signs: Vital Signs Temp Pulse Resp BP O2 Del Method 96.7 F L 54 L 18 130/52 H Room Air 03/14/24 11:07 03/07/24 10:02 03/14/24 11:07 03/14/24 11:07 03/07/24 10:02 Oxygen Delivery Method Room Air Weight: 106.594 kg Body Mass Index (BMI) 30.2 Physical Exam Const alert, oriented x3 and no apparent distress General Appearance: cooperative HEENT normocephalic Eyes General Eye: normal appearance of both eyes Neck General: normal visual inspection Lymph Lymphatic: no lymphadenopathy noted and no lymphedema noted Resp normal respiratory effort Cardio regular rate and regular rhythm Extremity normal capillary refill, no joint enlargement, no calf tenderness and no pedal edema Extremity Narrative: Vascular: DP and PT pulses palpable to the left lower extremity. CFT is less than 4 seconds to the digits. Hair growth is diminished to the digits of the foot. Normal temperature gradient. Neurologic: Absent protective sensation secondary to diabetic peripheral polyneuropathy. Gross sensation is intact. Musculoskeletal: Charcot foot arthropathy with apex of deformity of the Lisfranc joint with corresponding rocker-bottom foot deformity of the left foot. Derm: Rocker-bottom foot deformity noted with plantar ulceration at the central midfoot/cuboid region. Ulceration demonstrates newly epithelialized skin with improving thickness to skin. Site healing well. There is palpable osseous def ormity sub ulceration secondary to Charcot deformity. No palpable fluctuance/bogginess noted. No visible abscess formation. No erythema noted. No purulent drainage. No malodor noted. Skin no rashes or lesions noted, skin turgor normal and no jaundice Neuro moves all extremities Debridement Note Debridement Note No debridement was completed: No debridement was completed today Post-Debridement Measurements and Additional Note: Post-Debridement Measurements/Treatment - Nurse 1 - General Ulcer Assessment Start: 03/07/24 10:02 Freq: Status: Active Protocol: LAURA Activity Type Activity Date Activity User E-sign Co-sign Detail Recorded Client Recorded Date Recorded By Document 03/07/24 10:02 GM [id number] 03/07/24 10:12 GM Document 03/14/24 11:07 DL [id number] 03/14/24 11:17 DL 03/07/24 03/14/24 10:02 11:07 - Today's Visit Information Type of service Follow-up Visit Follow-up Visit (Physician/GROUP DIRECTOR EXPERIENCE (Physician/GROUP DIRECTOR EXPERIENCE ) ) Arrival Mode Ambulatory Ambulatory Transfer Assistance None None Patient Identification Verified (Name & Yes Yes ) Patient Requires Transmission-Based No Precautions Height and Weight Body Mass Index (BMI) 30.2 30.2 BMI Classification Obese Obese Vital Signs Temperature (97.8 F-99.1 F) 97.5 F L 96.7 F L Temperature Source Temporal Temporal Pulse Rate (60-100) 54 L Pulse Location Monitor Respiratory Rate (12-18) 16 18 Respiratory rate source Observation Observation Oxygen Delivery Method Room Air Blood Pressure (90/60-120/80) 119/36 L 130/52 H Blood Pressure Mean (mm Hg) 63 78 Source Monitor Monitor Position Sitting Blood Pressure Location Right Arm History Since Last Visit- (Skip if this is Patient's initial visit) Have you changed medications since your No No last visit? Any new allergies or adverse reactions No No Had a fall/change in ADL's that may No No increase risk of falls Signs or symptoms of abuse and/or No No neglect since last visit Have you been in the hospital since your No No last visit? Has dressing in place as prescribed Yes Yes Has compression in place as prescribed N/A Has offloadiing in place as prescribed Yes Yes Experienced any changes in pain level or No No management Left Footwear Total Contact Total Contact Cast Cast Right Footwear Diabetic Shoe Pain Scale: 0-10 Numeric Is Patient Pain Free? Yes Yes - Nurse 1 - General Ulcer Measurement Start: 03/07/24 10:02 Freq: Status: Active Protocol: Activity Type Activity Date Activity User E-sign Co-sign Detail Recorded Client Recorded Date Recorded By Document 03/07/24 10:02 GM [id number] 03/07/24 10:12 GM Document 03/14/24 11:07 DL [id number] 03/14/24 11:17 DL 03/07/24 03/14/24 10:02 11:07 Wound Center Nurse 1 1. left plantar foot -Combined with other wound No -Current Size (cm) - Length 0.1 0.1 -Current Size (cm) - Width 0.1 0.1 -Current Size (cm) - Depth 0.1 0.1 -Total Square Cm 0.01 0.01 -Exudate Amt None Present -Wound Margin Flat & Intact -Necrosis Amt Small (1-33%) -Necrotic Tissue Type Eschar -Structure Exposed N/A -Texture (Tere-wound Skin Appearance) Assessed Callus,Scarring -Moisture (Tere-wound Skin Appearance) Assessed No Abnormality -Color (Tere-wound Skin Appearance) Assessed No Abnormality -Temperature (Tere-wound Skin No Abnormality Appearance) (Pt Warm) -Tenderness on Palpation (Tere-wound No Skin Appearance) -Ulcer Cleansing Soap and Water -Foul Odor after Cleansing No -Anesthetic Used 5% Lidocaine Gel WC - Nurse 2 - General Ulcer CM Notes Start: 03/07/24 10:02 Freq: Status: Active Protocol: Activity Type Activity Date Activity User E-sign Co-sign Detail Recorded Client Recorded Date Recorded By Document 03/07/24 10:14 BMF [id number] 03/07/24 10:16 BMF Edit Result 03/07/24 10:14 BMF (1) [id number] 03/07/24 10:34 BMF Document 03/14/24 11:31 JF [id number] 03/14/24 11:33 JF (1) 1. left plantar foot - Type of Offloading => Total Contact Cast => (TCC) - Left ($) 03/07/24 03/14/24 10:14 11:31 Wound Center Nurse 2 1. left plantar foot -Time 10:14 -Correct Patient No -Correct Side, Site, Position No -Correct Procedure No -Procedure Performed No -Post Debridement (cm) - Length 0.1 0.1 -Post Debridement (cm) - Width 0.1 0.1 -Post Debridement (cm) - Depth 0.1 0.1 -Total Square (Post) (cm) 0.01 0.01 -Area of Debridement (cm) - Length 0.1 0.1 -Area of Debridement (cm) - Width 0.1 0.1 -Total Square (Area) (cm) 0.01 0.01 -Tunneling No -Undermining/Tunneling No -Circular Undermining No -Wound/Ulcer Outcome Not Healed Not Healed -Bleeding Controlled with NA -Offloading Yes -Type of Offloading Total Contact Total Contact Cast (TCC) - Cast (TCC) - Left ($) Left ($) -Debridement - Subq, 1st 20sq cm No Pain Scale: 0-10 Numeric Is Patient Pain Free? Yes Yes LUIZA - Nurse 3 - General Ulcer D/C NN Start: 03/07/24 10:02 Freq: Status: Active Protocol: Activity Type Activity Date Activity User E-sign Co-sign Detail Recorded Client Recorded Date Recorded By Document 03/07/24 10:32 [id number] 03/07/24 10:34 Document 03/14/24 11:33 JF [id number] 03/14/24 11:33 JF 03/07/24 03/14/24 10:32 11:33 Wound Care Center Nurse 3 1. left plantar foot -Ulcer Cleansing Not Cleansed -Foul Odor after Cleansing No -Primary Dressing Applied Mepilex Border -Mepilex Border 1 -Wound Comment(s) used his own mepilex Pain Scale: 0-10 Numeric Is Patient Pain Free? Yes Yes WC - Visit Discharge Discharge Condition Stable Stable Ambulatory Status Ambulatory Ambulatory Transportation Private Auto Private Auto Medication Reconcilliation completed & Yes provided to patient/care provider Clinical Summary of Care Provided Yes Assessment/Plan Assessment/Plan (1) Neuropathic ulcer of left foot with fat layer exposed: CODE(S): L97.522 - Non-pressure chronic ulcer of other part of left foot with fat layer exposed (2) Charcot joint of left foot: CODE(S): M14.672 - Charcot's joint, left ankle and foot (3) Type I diabetes mellitus with polyneuropathy: CODE(S): E10.42 - Type 1 diabetes mellitus with diabetic polyneuropathy (4) Diabetes mellitus with foot ulcer: CODE(S): E11.621 - Type 2 diabetes mellitus with foot ulcer; L97.509 - Non-pressure chronic ulcer of other part of unspecified foot with unspecified severity PLAN: Plan Patient seen and evaluated Ulceration remains open Continue total contact cast Continue current dressing changes Follow-up [address] Parsons Plan is for patient to return to [place] with [place] boot and consider surgical evaluation for left foot Charcot deformity by his colleague in [place].
[2024-03-21 09:38] VITALS: BP 121/32; PULSE 61; RESP 18; TEMP 36.5; BMI 30.2
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
--- NOTE | 2024-03-25 13:30 | WC ---
PHOTO LEFT PLATAR 03/21/24
== END 2024-03-21 16:05 | disposition home or self-care (01) ==
LOC: WC 09:45
PROVIDERS: Referring Provider Student in an Organized Health Care Education/Training Program; Visit Provider Student in an Organized Health Care Education/Training Program
DX: E11.621 Type 2 diabetes mellitus with foot ulcer (principal); L97.422 Non-pressure chronic ulcer of left heel and midfoot with fat layer exposed; E11.610 Type 2 diabetes mellitus with diabetic neuropathic arthropathy; E11.42 Type 2 diabetes mellitus with diabetic polyneuropathy
CPT/HCPCS: 29445; 99213; G0463